=== PATIENT | female | born 1980 | race Caucasian/White ===

== ENCOUNTER 2016-12-20 10:14 | Emergency (ER) | payer SELFPAY ==
[~2016-12-20] VITALS: Ht 157.5 cm; Wt 61.2 kg
--- OUTSIDE RECORDS SUMMARY | 2016-12-20 10:20 | XMS REPORT ---
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 Name Role Phone LYUBOV DONOVAN CP Unavailable Allergies, Adverse Reactions, Alerts Substance Reaction Event Type Bactrim hives Drug Allergy Codeine hives and swelling of throat Drug Allergy Problems Problem Type Condition Code Onset Dates Condition Status Problem Diffuse cystic mastopathy of left breast N60.12 Active Assessment Family history of breast cancer Z80.3 Active Problem Diffuse cystic mastopathy of right breast N60.11 Active Assessment Fibrocystic breast changes, right N60.11 Active Assessment Breast pain, left N64.4 Active Assessment Fibrocystic breast changes, left N60.12 Active Medications Medication Code System Code Instructions Start Date End Date Status Dosage Cyclobenzaprine HCl [facility] [address]-73 10 MG Orally Three times a day 1 tablet Procedures Procedure Coding System Code Date Office Visit, Est Pt., Level 3 CPT-4 50060 Feb 15, 2016 Vital Signs Date/Time: Feb 15, 2016 Cardiac Monitoring Heart Rate 102 bpm Weight 137.5 lbs Height 63 in BMI 24.35 Index Blood Pressure Diastolic 68 mmHg Blood Pressure Systolic 102 mmHg Results No Known Results Summary Purpose eClinicalWorks Submission
[2016-12-20] MEDS ORDERED: DIAZEPAM (10:41)
[2016-12-20] MEDS ORDERED: CYCL10TA9 PO (10:42)
--- NOTE | 2016-12-20 10:55 | ED Abdominal Pain ---
General Chief Complaint: Abdominal/GI Problems Stated Complaint: ABD PAIN--5 DAYS Nursing Triage Note: ARRIVED VIA AMB WITH COMPLAINTS OF ABD PAIN X5 DAYS THOUGHT IT MIGHT BE INDEGESTION AND TOOK MEDS FOR THAT WHICH DID NOT HELP. STATES THAT IS STARTED ON THE LEFT AND NOW IS ALL OVER HER STOMACH. Sepsis Screen: No Definite Risk Source of Information: Patient Exam Limitations: No Limitations History of Present Illness Time Seen By Provider: 10:46 Initial Comments Patient presents to ER by private conveyance with chief complaint of 5 days left upper quadrant abdominal pain that radiates to the epigastric region. She is experiencing some nausea early on with some vomiting but not presently. She has had chills butobjective fever. She had diarrhea, loose stools. Last bowel movement was this morning. No blood in the stool or vomit. She's had no rash, headache, for contacts, foreign travel, camping, drinking from unsafe water sources. She states she's had 2 surgeries on her belly laparoscopic tubal and laparoscopic ovarian cyst removed although she does not remember which side. She has been taking Prilosec and Tums but this did not make any difference in her pain. Allergies and Home Medications Allergies Coded Allergies: codeine (Verified Allergy, Unknown, 12/20/16) sulfamethoxazole (Verified Allergy, Unknown, 12/20/16) trimethoprim (Verified Allergy, Unknown, 12/20/16) Home Medications Cyclobenzaprine HCl 10 Mg Tablet, 10 MG PO, (Reported) [Diazepam] , (Reported) Review of Systems Constitutional: chills, No diaphoresis, No fever, malaise EENTM: No Eye Pain, No Ear Pain Respiratory: Denies Cough, Denies Shortness of Air Cardiovascular: Denies Chest Pain, Denies Edema, Denies Lightheadedness, Denies Syncope Gastrointestinal: See HPI, Denies Abdomen Distended, Abdominal Pain (left upper quadrant), Denies Blood Streaked Stools, Denies Constipated, Diarrhea, Denies Difficulty Swallowing, Nausea, Vomiting Genitourinary: Burning, Denies Discharge Musculoskeletal: No back pain, No joint pain Skin: No pruritus, No rash Psychiatric/Neurological: Denies Headache, Denies Numbness, Denies Paresthesia Past Lremsuu-Aozinf-Qbzyzn Hx Patient Social History Alcohol Use: Denies Use Recreational Drug Use: No Smoking Status: Current Everyday Smoker Recent Foreign Travel: No Contact w/Someone Who Travel: No Recent Infectious Disease Expo: No Surgeries History of Surgeries: Yes (CYST, NECK) Surgeries: Tubal Ligation Cardiovascular History of Cardiac Disorders: No Neurological History of Neurological Disord: No Genitourinary History of Genitourinary Disor: No Gastrointestinal History of Gastrointestinal Di: No Musculoskeletal History of Musculoskeletal Dis: No Endocrine History of Endocrine Disorders: No HEENT History of HEENT Disorders: No Cancer History of Cancer: No Did You Recieve Any Treatments: No Psychosocial History of Psychiatric Problem: No Physical Exam Vital Signs VS - Last 72 Hours, by Label 12/20/16 10:32 Temp 97.1 Pulse 89 Resp 18 B/P (MAP) 109/68 Pulse Ox 98 Capillary Refill : Less Than 3 Seconds General Appearance: WD/WN, mild distress HEENT: PERRL/EOMI, pharynx normal Neck: non-tender, supple, normal inspection Respiratory: chest non-tender, lungs clear, normal breath sounds Cardiovascular: normal peripheral pulses, regular rate, rhythm, no edema Peripheral Pulses: 2+ Dorsalis Pedis (R), 2+ Left Dors-Pedis (L) Gastrointestinal: normal bowel sounds, no organomegaly, guarding (all 4 quadrants), No rebound, tenderness (epigastric, left upper quadrant) Extremities: non-tender, normal inspection, normal capillary refill Back: normal inspection, CVA tenderness (L) Neurologic/Psychiatric: alert, oriented x 3 Skin: normal color, warm/dry Progress/Results/Core Measures Results/Orders Lab Results Laboratory Tests Test 12/20/16 10:25 12/20/16 11:02 Range/Units Urine Color YELLOW Urine Clarity SLIGHTLY CLOUDY Urine pH 8 5-9 Urine Specific [place] 1.010 L 1.016-1.022 Urine Protein NEGATIVE NEGATIVE Urine Glucose (UA) NEGATIVE NEGATIVE Urine Ketones NEGATIVE NEGATIVE Urine Nitrite NEGATIVE NEGATIVE Urine Bilirubin NEGATIVE NEGATIVE Urine Urobilinogen NORMAL NORMAL MG/DL Urine Leukocyte Esterase NEGATIVE NEGATIVE Urine RBC (Auto) 1+ H NEGATIVE Urine RBC RARE /HPF Urine WBC RARE /HPF Urine Squamous Epithelial Cells 5-10 /HPF Urine Crystals PRESENT H /LPF Urine Amorphous Sediment MOD SAUL PHOSPHATE H /LPF Urine Bacteria NEGATIVE /HPF Urine Casts NONE /LPF Urine Mucus NEGATIVE /LPF Urine Culture Indicated NO White Blood Count 5.1 4.3-11.0 10^3/uL Red Blood Count 4.42 4.35-5.85 10^6/uL Hemoglobin 13.2 11.5-16.0 G/DL Hematocrit 39 35-52 % Mean Corpuscular Volume 89 80-99 FL Mean Corpuscular Hemoglobin 30 25-34 PG Mean Corpuscular Hemoglobin Concent 34 32-36 G/DL Red Cell Distribution Width 12.7 10.0-14.5 % Platelet Count 292 130-400 10^3/uL Mean Platelet Volume 10.2 7.4-10.4 FL Neutrophils (%) (Auto) 46 42-75 % Lymphocytes (%) (Auto) 44 12-44 % Monocytes (%) (Auto) 6 0-12 % Eosinophils (%) (Auto) 3 0-10 % Basophils (%) (Auto) 1 0-10 % Neutrophils # (Auto) 2.3 1.8-7.8 X 10^3 Lymphocytes # (Auto) 2.3 1.0-4.0 X 10^3 Monocytes # (Auto) 0.3 0.0-1.0 X 10^3 Eosinophils # (Auto) 0.2 0.0-0.3 10^3/uL Basophils # (Auto) 0.0 0.0-0.1 10^3/uL Sodium Level 139 135-145 MMOL/L Potassium Level 4.0 3.6-5.0 MMOL/L Chloride Level 108 H 98-107 MMOL/L Carbon Dioxide Level 25 21-32 MMOL/L Anion Gap 6 5-14 MMOL/L Blood Urea Nitrogen 8 7-18 MG/DL Creatinine 0.73 0.60-1.30 MG/DL Estimat Glomerular Filtration Rate > 60 BUN/Creatinine Ratio 11 Glucose Level 83 70-105 MG/DL Calcium Level 9.0 8.5-10.1 MG/DL Total Bilirubin 0.4 0.1-1.0 MG/DL Aspartate Amino Transf (AST/SGOT) 16 5-34 U/L Alanine Aminotransferase (ALT/SGPT) 12 0-55 U/L Alkaline Phosphatase 82 40-136 U/L Total Protein 6.8 6.4-8.2 GM/DL Albumin 3.9 3.2-4.5 GM/DL Lipase 7 L 8-78 U/L My Orders Orders - SHAYNA SAXENA Ct Abd/Pelvis Wo(Kidney Stone) (12/20/16 10:48) Cbc With Automated Diff (12/20/16 10:48) Comprehensive Metabolic Panel (12/20/16 10:48) Lipase (12/20/16 10:48) Ua Culture If Indicated (12/20/16 10:48) Vital Signs/I&O Vital Sign - Last 12Hours 12/20/16 10:32 Temp 97.1 Pulse 89 Resp 18 B/P (MAP) 109/68 Pulse Ox 98 Blood Pressure Mean: 82 Progress Note : Time: 10:54 Progress Note Left upper quadrant and epigastric pain with left CVA tenderness. Possibility of kidney stone however with her nausea vomiting and loose stools it is more likely that this could represent a viral gastroenteritis. She's had chills but certainly no fever on arrival. She has dysuria so we'll go ahead and do the kidney scan study as well as get a UA. Departure Impression Impression: Primary Impression: Abdominal pain Qualified Codes: R10.12 - Left upper quadrant pain Additional Impression: Gastroenteritis Disposition: 01 HOME, SELF-CARE Condition: Stable Departure-Patient Inst. Decision time for Depature: 12:16 Referrals: NO,LOCAL PHYSICIAN (PCP/Family) Primary Care Physician Patient Instructions: Viral Gastroenteritis Add. Discharge Instructions: Drink plenty of fluids. Use the nausea medicine every 6 hours under your tongue as needed to control your nausea, Zofran. If your symptoms persist for more than 7-10 days then you should follow up with her primary care physician and consider alternative diagnoses. If you're having loose stools for more than 48 hours it's reasonable to take Imodium 4 mg, 2 tablets and then every 4 hours after that if you're still having loose stools you should take one tablet. All discharge instructions reviewed with patient and/or family. Voiced understanding. Scripts Ondansetron (Ondansetron Odt) 4 Mg Tab.rapdis 4 MG PO Q6H Y for NAUSEA/VOMITING, #8 TAB 0 Refills Prov: SHAYNA SAXENA 12/20/16 Work/School Note: Work Release Form Date Seen in the Emergency Department: Dec 20, 2016 Return to Work: Dec 23, 2016 Restrictions: No Restrictions SHAYNA SAXENA Dec 20, 2016 10:55
[2016-12-20 11:02] LABS: BILIRUBIN,URINE NEGATIVE (NEGATIVE); KETONES,URINE NEGATIVE (NEGATIVE); LEUKOCYTE ESTERASE ,URINE NEGATIVE (NEGATIVE); NITRITE,URINE NEGATIVE (NEGATIVE); PH,URINE 8 (5-9); PROTEIN,URINE NEGATIVE (NEGATIVE); UROBILINOGEN,URINE NORMAL (NORMAL)
[2016-12-20 11:08] LABS: BASOPHILS % (AUTO) 1 % (0-10); EOSINOPHILS # (AUTO) 0.2 10^3/uL (0.0-0.3); EOSINOPHILS % (AUTO) 3 % (0-10); LYMPHOCYTES # (AUTO) 2.3 X 10^3 (1.0-4.0); LYMPHOCYTES % (AUTO) 44 % (12-44); MEAN CORPUSCULAR HEMOGLOBIN 30 PG (25-34); MEAN CORPUSCULAR HGB CONC 34 G/DL (32-36); MEAN CORPUSCULAR VOLUME 89 FL (80-99); MEAN PLATELET VOLUME 10.2 FL (7.4-10.4); MONOCYTES # (AUTO) 0.3 X 10^3 (0.0-1.0); MONOCYTES % (AUTO) 6 % (0-12); NEUTROPHILS # (AUTO) 2.3 X 10^3 (1.8-7.8); NEUTROPHILS % (AUTO) 46 % (42-75); PLATELET COUNT 292 10^3/uL (130-400); RED BLOOD COUNT 4.42 10^6/uL (4.35-5.85); RED CELL DISTRIBUTION WIDTH 12.7 % (10.0-14.5); WHITE BLOOD COUNT 5.1 10^3/uL (4.3-11.0)
[2016-12-20 11:13] LABS: WBC,URINE RARE /HPF
[2016-12-20 11:25] LABS: ALANINE AMINOTRANSFERASE 12 U/L (0-55); ALBUMIN 3.9 GM/DL (3.2-4.5); ANION GAP 6 MMOL/L (5-14); ASPARTATE AMINO TRANSFERASE 16 U/L (5-34); BILIRUBIN,TOTAL 0.4 MG/DL (0.1-1.0); BLOOD UREA NITROGEN 8 MG/DL (7-18); BUN/CREATININE RATIO 11; CARBON DIOXIDE 25 MMOL/L (21-32); CHLORIDE 108 MMOL/L (98-107); CREATININE SERUM 0.73 MG/DL (0.60-1.30); GFR ESTIMATED > 60; GLUCOSE 83 MG/DL (70-105); LIPASE 7 U/L (8-78); SODIUM 139 MMOL/L (135-145); TOTAL PROTEIN 6.8 GM/DL (6.4-8.2)
--- NOTE | 2016-12-20 11:54 | Diagnostic Imaging Report ---
PROCEDURE: CT urinary tract, rule out kidney stone. TECHNIQUE: Multiple contiguous axial images were obtained through the abdomen and pelvis without the use of intravenous contrast. INDICATION: Mid abdominal pain. Nausea. FINDINGS: The lung bases appear clear. The liver, the gallbladder, the spleen, the adrenal glands, the pancreas appear unremarkable. The kidneys demonstrate no hydronephrosis. No kidney stones. There is a 4 mm calcification in the right side of the pelvis appears to be a phlebolith with no definite ureteric or bladder stones seen. The appendix is normal in caliber with no evidence of appendicitis. There is no bowel obstruction. No significant free fluid or fluid collection in the abdomen or pelvis is seen. The uterus and adnexa appear grossly unremarkable. The osseous structures demonstrate mild left convexity curvature of the lumbar spine, probably positional. IMPRESSION: No urinary tract stone or hydronephrosis. Dictated by: Dictated on workstation # [id number]
[2016-12-20] MEDS ORDERED: ONDA4TAB11 PO (12:22)
[2016-12-20 12:35] VITALS: BP 113/64
== END 2016-12-20 12:35 | disposition home or self-care (01) ==
LOC: EDUNIT# 10:14 → ER 10:16
DX: K52.9 Noninfective gastroenteritis and colitis, unspecified (principal); F17.200 Nicotine dependence, unspecified, uncomplicated; Z98.51 Tubal ligation status; Z87.42 Personal history of other diseases of the female genital tract
CPT/HCPCS: 36415; 74176; 80053; 81000; 83690; 85025

== ENCOUNTER → 2017-06-22 | Outpatient (CLI) | payer BC ==
[~2017-06-22] MED LIST: CYCL10TA9 PO; DIAZEPAM; ONDA4TAB11 PO
[2017-06-22 08:43] LABS: BASOPHILS # (AUTO) 0.1 10^3/uL (0.0-0.1); BASOPHILS % (AUTO) 1 % (0-10); EOSINOPHILS # (AUTO) 0.1 10^3/uL (0.0-0.3); EOSINOPHILS % (AUTO) 2 % (0-10); HEMATOCRIT 39 % (35-52); HEMOGLOBIN 13.3 G/DL (11.5-16.0); LYMPHOCYTES # (AUTO) 1.8 X 10^3 (1.0-4.0); LYMPHOCYTES % (AUTO) 38 % (12-44); MEAN CORPUSCULAR HEMOGLOBIN 30 PG (25-34); MEAN CORPUSCULAR HGB CONC 34 G/DL (32-36); MEAN CORPUSCULAR VOLUME 89 FL (80-99); MONOCYTES # (AUTO) 0.3 X 10^3 (0.0-1.0); MONOCYTES % (AUTO) 6 % (0-12); NEUTROPHILS # (AUTO) 2.6 X 10^3 (1.8-7.8); NEUTROPHILS % (AUTO) 53 % (42-75); PLATELET COUNT 297 10^3/uL (130-400); RED CELL DISTRIBUTION WIDTH 12.8 % (10.0-14.5); WHITE BLOOD COUNT 4.8 10^3/uL (4.3-11.0)
[2017-06-22 09:09] LABS: ALANINE AMINOTRANSFERASE 18 U/L (0-55); ALBUMIN 4.1 GM/DL (3.2-4.5); ALKALINE PHOSPHATASE 77 U/L (40-136); BILIRUBIN,TOTAL 0.4 MG/DL (0.1-1.0); BUN/CREATININE RATIO 13; CALCIUM 8.6 MG/DL (8.5-10.1); CARBON DIOXIDE 25 MMOL/L (21-32); CHLORIDE 106 MMOL/L (98-107); CHOLESTEROL 191 MG/DL (< 200); CREATININE SERUM 0.79 MG/DL (0.60-1.30); GFR ESTIMATED > 60; GLUCOSE 90 MG/DL (70-105); HDL CHOLESTEROL 40 MG/DL (40-60); SODIUM 138 MMOL/L (135-145); TOTAL PROTEIN 6.2 GM/DL (6.4-8.2); TRIGLYCERIDES 55 MG/DL (<150); VLDL CHOLESTEROL 11 MG/DL (5-40)
== END ==
LOC: LAB 08:21
PROVIDERS: ATTEND Family Medicine
DX: Z00.00 Encounter for general adult medical examination without abnormal findings (principal); L98.8 Other specified disorders of the skin and subcutaneous tissue; Z72.0 Tobacco use
CPT/HCPCS: 36415; 80053; 80061; 84443; 85025

== ENCOUNTER → 2017-10-16 | Outpatient (CLI) | payer BC ==
--- NOTE | 2017-10-16 10:28 | Diagnostic Imaging Report ---
EXAMINATION: Thoracic spine at 0935 AM AP, lateral and swimmer's views were obtained. The AP view does show curvature of the lower thoracic spine, convex to the right. This finding is more pronounced than noted on the CT abdomen/pelvis exam of 12/20/2016 and consequently may in part be due to positioning. The vertebral body heights are within normal limits and the intervertebral disc spaces are well-maintained. There is no fracture or acute bony abnormality evident. There is no sign of a paraspinal mass. Incidental note is made of an interbody device at the C5-6 level. IMPRESSION: 1. There is no evidence for an acute bony abnormality. 2. If there is clinical concern regarding spinal stenosis or nerve root encroachment, then MRI would be recommended for additional study. Dictated by: Dictated on workstation # [id number]
--- NOTE | 2017-10-16 11:05 | Diagnostic Imaging Report ---
Lumbar spine at 932 hours. INDICATION: Back pain. AP, lateral and spot lateral views were obtained. FINDINGS: AP view does show curvature of the lumbar spine, convex to left. This finding was not present on the prior CT abdomen/pelvis exam of 12/20/2016 and consequently may well be due to positioning. The vertebral body heights are within normal limits and intervertebral spaces are well-maintained. There is no fracture or acute bony abnormality evident. There is no paraspinal mass visualized. The sacroiliac joints are symmetrical and within normal limits. IMPRESSION: 1. There is no evidence for an acute bony abnormality. 2. If there is clinical concern regarding spinal stenosis or nerve root encroachment, then MRI would be recommended for further study. Dictated by: Dictated on workstation # [id number]
== END ==
LOC: RAD 08:57
PROVIDERS: ATTEND Nurse Practitioner Family
DX: M54.5 Low back pain (principal); M54.6 Pain in thoracic spine
CPT/HCPCS: 72072; 72100

== ENCOUNTER → 2017-10-23 | Outpatient (CLI) | payer BC ==
--- NOTE | 2017-10-23 13:09 | Diagnostic Imaging Report ---
PROCEDURE: MRI lumbar spine. TECHNIQUE: Multiplanar, multisequence MRI of the lumbar spine was performed without contrast. INDICATION: Back pain, left leg pain, numbness and tingling to the level of the left foot, symptoms of two weeks' duration with no known discrete injury. FINDINGS: Lumbar body heights are maintained. Their alignment is anatomic. The marrow signal intensity is normal. The pedicles and pars are intact. There is only slight desiccation of the L5-S1 disc with minimal circumferential degenerative annular bulge. No focal herniation. The lumbar spinal canal, the neural foramina, and the lateral recesses are widely patent at each level. Conus appears normal. There is normal dispersal of the nerves of the cauda equina. No acute intrathecal or epidural abnormality. Partially visualized sacrum in the parasagittal sequences is normal. There is no paravertebral mass, hemorrhage, or fluid collection. IMPRESSION: Normal MRI lumbar spine aside from mild nonstenotic degenerative changes to the L5-S1 disc. Dictated by: Dictated on workstation # [id number]
--- NOTE | 2017-10-23 13:14 | Diagnostic Imaging Report ---
INDICATION: No known injury; however, back pain, left leg pain and numbness with tingling down to the level of the foot; symptoms 2 weeks in duration. FINDINGS: Corporate Strategy Analyst acquisitions show postsurgical changes to the C5-C6 cervical levels. The thoracic spinal cord has a normal volume and normal morphology and a normal signal intensity. CSF circumscribes the cord at each vertebral body and disc space level, and the spinal canal is widely patent throughout. There is a hemangioma as a benign finding in the T5 vertebral body. No acute or suspicious marrow signal abnormality. The thoracic discs are well hydrated and are nondisplaced, and the neural foramina bilaterally appear widely patent at all levels. There is no paravertebral mass, hemorrhage, or fluid collection revealed. IMPRESSION: T5 incidental vertebral body hemangioma. Well-hydrated nondisplaced thoracic discs. Normal cord. No canal or foraminal stenosis. No disc herniation. No acute bony abnormality. No ligamentous pathology. Normal alignment. Dictated by: Dictated on workstation # [id number]
== END ==
LOC: RAD 09:15
PROVIDERS: ATTEND Nurse Practitioner Family
DX: M47.817 Spondylosis without myelopathy or radiculopathy, lumbosacral region (principal)
CPT/HCPCS: 72146; 72148

== ENCOUNTER → 2019-05-30 | Outpatient (CLI) | payer BC ==
--- NOTE | 2019-05-30 09:44 | Diagnostic Imaging Report ---
Clinical indication: Patient with radiculopathy. Exam: MRI of the lumbar spine performed without IV contrast. Sagittal T2, sagittal T1, sagittal T2 fat sat and axial T2. Comparison: MRI of the lumbar spine without contrast dated 10/23/2017. Findings: Five lumbar type vertebra are identified. Lumbar spine has normal alignment with no fracture or dislocation. The lumbar vertebra have normal T1 and T2 signal. The visualized portions of the distal spinal cord, conus medullaris, and cauda equina have normal anatomic appearance. The conus medullaris tip is seen at the upper L1 vertebral body level. No paraspinal soft tissue abnormality is seen. There is no significant central spinal canal or neural foramen narrowing. There is no significant degenerative disease. The intervertebral disk spaces are well-preserved. Impression: Unremarkable MRI of the Lumbar spine. Dictated by: Dictated on workstation # [id number]
== END ==
LOC: RAD 07:35
PROVIDERS: ATTEND Orthopaedic Surgery
DX: M54.16 Radiculopathy, lumbar region (principal)
CPT/HCPCS: 72148

== ENCOUNTER 2019-06-24 14:31 | Emergency (ER) | payer BC ==
[~2019-06-24] VITALS: Ht 160 cm; Wt 63.5 kg
[2019-06-24 15:07] LABS: BILIRUBIN,URINE NEGATIVE (NEGATIVE); CLARITY,URINE CLEAR; COLOR,URINE YELLOW; GLUCOSE, URINE (UA) NEGATIVE (NEGATIVE); KETONES,URINE NEGATIVE (NEGATIVE); LEUKOCYTE ESTERASE ,URINE NEGATIVE (NEGATIVE); NITRITE,URINE NEGATIVE (NEGATIVE); PROTEIN,URINE NEGATIVE (NEGATIVE)
[2019-06-24] MEDS ORDERED: fentaNYL INJECTION 100 MCG/2 ML AMP IVP ONE (15:15)
[2019-06-24] MEDS ORDERED: ONDANSETRON 4 MG/2 ML (SDV) Z0FRAN IVP ONE (15:15)
[2019-06-24] MEDS ORDERED: PANTOPRAZOLE 40 MG (PROTONIX) VIAL IV ONE (15:15)
[2019-06-24 15:16] LABS: BACTERIA,URINE TRACE /HPF; RBC,URINE RARE /HPF
--- NOTE | 2019-06-24 15:19 | ED Abdominal Pain ---
General Chief Complaint: Abdominal/GI Problems Stated Complaint: ABD PAIN Nursing Triage Note: pt amb to triage with complaint of abd pain that started this am. states last time she had pain like this 10 yrs ago, was told she needed her gallbladder out, unable to have surgery due to finances. Sepsis Screen: No Definite Risk Source of Information: Patient Exam Limitations: No Limitations History of Present Illness Date Seen by Provider: Jun 24, 2019 Time Seen by Provider: 14:59 Initial Comments The patient presents to ER by private conveyance with chief complaint of since about 6 to 8:00 this morning she is experiencing some epigastric and right upper quadrant abdominal pain as severe, progressively worsening, sharp unrelenting. She ate biscuits and gravy at approximate 4:00 this morning. She's had nausea without vomiting since then. She had a bowel movement this morning which was normal, formed. She's had no fever or chills. No chest pain shortness of breath cough. She says 10 years ago she was told her gallbladder needed to come out but because she did not have insurance of the time she did not pursue it. She does not take any medications routinely but does follow with Dr. Montejo. She denies a history of acid reflux or indigestion. She did take some ibuprofen at 8:00 and again around 1:00 this morning. She says opiates pain medicines make her very nauseated and she does not tolerate them very well. Historically she's had her tubes tied and an ovarian cyst removed. Allergies and Home Medications Allergies Coded Allergies: codeine (Verified Allergy, Unknown, 12/20/16) sulfamethoxazole (Verified Allergy, Unknown, 12/20/16) trimethoprim (Verified Allergy, Unknown, 12/20/16) Home Medications Ondansetron 4 Mg Tab.rapdis, 4 MG PO Q6H PRN for NAUSEA/VOMITING Prescribed by: SHAYNA SAXENA on 12/20/16 1222 Patient Home Medication List Home Medication List Reviewed: Yes Review of Systems Review of Systems Constitutional: No chills, No fever EENTM: No Blurred Vision, No Double Vision Respiratory: Denies Cough, Denies Shortness of Air Cardiovascular: Denies Chest Pain, Denies Lightheadedness Gastrointestinal: See HPI, Abdominal Pain; Denies Constipated, Denies Diarrhea; Nausea, Poor Fluid Intake; Denies Vomiting Genitourinary: Denies Burning, Denies Discharge Musculoskeletal: No back pain, No joint pain All Other Systems Reviewed Negative Unless Noted: Yes Past Qyyxlkf-Wahbwn-Dimyej Hx Patient Social History Alcohol Use: Denies Use Recreational Drug Use: No Smoking Status: Current Everyday Smoker Recent Foreign Travel: No Contact w/Someone Who Travel: No Recent Infectious Disease Expo: No Immunizations Up To Date Tetanus Booster (TDap): Unknown PED Vaccines UTD: Yes Past Medical History Surgeries: Yes (CYST, NECK) Tubal Ligation Cardiac: No Neurological: No Genitourinary: No Gastrointestinal: No Musculoskeletal: No Endocrine: No HEENT: No Cancer: No Did You Recieve Any Treatments: No Psychosocial: No Physical Exam Vital Signs Vital Signs - First Documented 06/24/19 14:34 Temp 36.6 Pulse 80 Resp 20 B/P (MAP) 132/75 (94) Pulse Ox 100 O2 Delivery Room Air Capillary Refill : Less Than 3 Seconds Height/Weight/BMI Height: 5'2.00" Weight: 135lbs. oz. 61.604618as; 24.00 BMI Method:Stated General Appearance: WD/WN, mild distress HEENT: PERRL/EOMI, pharynx normal Neck: full range of motion, supple, normal inspection Respiratory: lungs clear, normal breath sounds, no respiratory distress, no accessory muscle use Cardiovascular: normal peripheral pulses, regular rate, rhythm Peripheral Pulses: 2+ Dorsalis Pedis (R), 2+ Left Dors-Pedis (L), 2+ Radial Pulses (R), 2+ Radial Pulses (L) Gastrointestinal: normal bowel sounds, soft, guarding (upper abdomen); No rebound; tenderness (epigastric and right upper quadrant with a softly positive Rosa sign), hepatomegaly (mild) Extremities: non-tender, normal inspection, no pedal edema Neurologic/Psychiatric: alert, normal mood/affect, oriented x 3 Skin: normal color, warm/dry Progress/Results/Core Measures Results/Orders Lab Results Laboratory Tests Test 06/24/19 15:00 06/24/19 15:32 Range/Units Urine Color YELLOW Urine Clarity CLEAR Urine pH 7.0 5-9 Urine Specific [place] 1.010 L 1.016-1.022 Urine Protein NEGATIVE NEGATIVE Urine Glucose (UA) NEGATIVE NEGATIVE Urine Ketones NEGATIVE NEGATIVE Urine Nitrite NEGATIVE NEGATIVE Urine Bilirubin NEGATIVE NEGATIVE Urine Urobilinogen 0.2 < = 1.0 MG/DL Urine Leukocyte Esterase NEGATIVE NEGATIVE Urine RBC (Auto) 2+ H NEGATIVE Urine RBC RARE /HPF Urine WBC NONE /HPF Urine Squamous Epithelial Cells 2-5 /HPF Urine Crystals NONE /LPF Urine Bacteria TRACE /HPF Urine Casts NONE /LPF Urine Mucus NEGATIVE /LPF Urine Culture Indicated NO Urine Opiates Screen NEGATIVE NEGATIVE Urine Oxycodone Screen NEGATIVE NEGATIVE Urine Methadone Screen NEGATIVE NEGATIVE Urine Propoxyphene Screen NEGATIVE NEGATIVE Urine Barbiturates Screen NEGATIVE NEGATIVE Ur Tricyclic Antidepressants Screen NEGATIVE NEGATIVE Urine Phencyclidine Screen NEGATIVE NEGATIVE Urine Amphetamines Screen NEGATIVE NEGATIVE Urine Methamphetamines Screen NEGATIVE NEGATIVE Urine Benzodiazepines Screen NEGATIVE NEGATIVE Urine Cocaine Screen NEGATIVE NEGATIVE Urine Cannabinoids Screen NEGATIVE NEGATIVE White Blood Count 6.5 4.3-11.0 10^3/uL Red Blood Count 4.47 4.35-5.85 10^6/uL Hemoglobin 13.4 11.5-16.0 G/DL Hematocrit 40 35-52 % Mean Corpuscular Volume 90 80-99 FL Mean Corpuscular Hemoglobin 30 25-34 PG Mean Corpuscular Hemoglobin Concent 33 32-36 G/DL Red Cell Distribution Width 13.5 10.0-14.5 % Platelet Count 353 130-400 10^3/uL Mean Platelet Volume 9.7 7.4-10.4 FL Neutrophils (%) (Auto) 42 42-75 % Lymphocytes (%) (Auto) 49 H 12-44 % Monocytes (%) (Auto) 6 0-12 % Eosinophils (%) (Auto) 3 0-10 % Basophils (%) (Auto) 1 0-10 % Neutrophils # (Auto) 2.7 1.8-7.8 X 10^3 Lymphocytes # (Auto) 3.2 1.0-4.0 X 10^3 Monocytes # (Auto) 0.4 0.0-1.0 X 10^3 Eosinophils # (Auto) 0.2 0.0-0.3 10^3/uL Basophils # (Auto) 0.1 0.0-0.1 10^3/uL Sodium Level 139 135-145 MMOL/L Potassium Level 3.5 L 3.6-5.0 MMOL/L Chloride Level 104 98-107 MMOL/L Carbon Dioxide Level 28 21-32 MMOL/L Anion Gap 7 5-14 MMOL/L Blood Urea Nitrogen 7 7-18 MG/DL Creatinine 0.80 0.60-1.30 MG/DL Estimat Glomerular Filtration Rate > 60 BUN/Creatinine Ratio 9 Glucose Level 80 70-105 MG/DL Calcium Level 9.1 8.5-10.1 MG/DL Corrected Calcium 8.7 8.5-10.1 MG/DL Total Bilirubin 0.2 0.1-1.0 MG/DL Aspartate Amino Transf (AST/SGOT) 20 5-34 U/L Alanine Aminotransferase (ALT/SGPT) 12 0-55 U/L Alkaline Phosphatase 68 40-136 U/L C-Reactive Protein High Sensitivity 0.06 0.00-0.50 MG/DL Total Protein 7.1 6.4-8.2 GM/DL Albumin 4.5 3.2-4.5 GM/DL Lipase 13 8-78 U/L My Orders Orders - SHAYNA SAXENA Ua Culture If Indicated (06/24/19 14:40) Ondansetron Injection (Zofran Injectio (06/24/19 15:15) Fentanyl Injection (Sublimaze Injection (06/24/19 15:15) Pantoprazole Injection (Protonix Injecti (06/24/19 15:15) Ed Iv/Invasive Line Start (06/24/19 15:10) Cbc With Automated Diff (06/24/19 15:10) Comprehensive Metabolic Panel (06/24/19 15:10) Hs C Reactive Protein (06/24/19 15:10) Lipase (06/24/19 15:10) Drug Screen Stat (Urine) (06/24/19 15:10) Us Gallbladder 35119 (06/24/19 15:10) Lidocaine 2% Viscous 15 Ml (Xylocaine Vi (06/24/19 16:30) Famotidine Tablet (Pepcid Tablet) (06/24/19 16:29) Antacid Suspension (Mylanta Suspension (06/24/19 16:30) Medications Given in ED Current Medications Medications Dose Ordered Sig/Lucinda Route Start Time Stop Time Status Last Admin Dose Admin Al Hydrox/Mg Hydrox/Simethicone 30 ml ONCE ONCE PO 06/24/19 16:30 06/24/19 16:31 DC 06/24/19 16:34 30 ML Fentanyl Citrate 25 mcg ONCE ONCE IVP 06/24/19 15:15 06/24/19 15:16 DC 06/24/19 15:23 25 MCG Lidocaine HCl 15 ml ONCE ONCE PO 06/24/19 16:30 06/24/19 16:31 DC 06/24/19 16:34 15 ML Ondansetron HCl 4 mg ONCE ONCE IVP 06/24/19 15:15 06/24/19 15:16 DC 06/24/19 15:23 4 MG Pantoprazole 40 mg ONCE ONCE IV 06/24/19 15:15 06/24/19 15:16 DC 06/24/19 15:23 40 MG Vital Signs/I&O 06/24/19 14:34 Temp 36.6 Pulse 80 Resp 20 B/P (MAP) 132/75 (94) Pulse Ox 100 O2 Delivery Room Air Blood Pressure Mean: 94 Progress Progress Note #1: Time: 15:18 Progress Note Since the patient has recently had ibuprofen milligrams we will give her some fentanyl. She remarks that she is very sensitive to pain meds so we'll give her 25 g of fentanyl to start. For Zofran for her nausea. Her vital signs are aseptic. Her abdominal exam points this towards right upper quadrant. Her history says that her gallbladder problem in the past. She endorses eating Biscuits and gravy before her pain started. Gallbladder, biliary tract, pancreatitis, PUD, etc.? Plan to get a ultrasound of her right upper quadrant abdomen. Pantoprazole. Progress Note #2: Time: 16:27 Progress Note Patient remembers she did eat a Zinger approximately 2 hours prior to arrival. Gallbladder was contracted on the ultrasound. Labs are unremarkable. Patient's pain was controlled with the fentanyl however she says it has worn off and her pain is back. We are going to give her a GI cocktail. Progress Note #3: Time: 16:56 Progress Note The patient actually had significant improvement of her pain at the GI cocktail. She still having a little bit of pain. Suspect she has gastritis possible ulcer. Plan to put her on Carafate, omeprazole and have her follow-up with Dr. Bryant for potential endoscopy versus gallbladder workup outpatient. Patient's in agreement with this plan. We'll send her home some Zofran and hydrocodone for back up. We have given her return precautions to the ER. Diagnostic Imaging Diagonstic Imaging: Ultrasound Plain Films/CT/US/NM/MRI: abdomen (gallbladder) Comments [facility] [place], [place] NAME: CRISTINE TREJO [facility] REC#: [id number] PT STATUS: REG ER : 1980 PHYSICIAN: SHAYNA SAXENA MD ADMIT DATE: 06/24/19/ER Draft Date of Exam:06/24/19 US GALLBLADDER [id number] PROCEDURE: US Gallbladder. TECHNIQUE: Multiple real-time grayscale images were obtained over the right upper quadrant in various projections. INDICATION: Abdominal pain. FINDINGS: Liver is normal in size at 17.1 cm. No discrete liver mass is detected. The gallbladder appears to be contracted. No stones are seen. There is no sludge. No biliary ductal dilatation is identified. Visualized pancreas is unremarkable. IVC is patent. Portal vein is patent and shows normal direction of flow. The aorta was not evaluated. Right kidney is without calculi or hydronephrosis. There is no ascites. IMPRESSION: Contracted gallbladder. No definite cholelithiasis or sludge is detected. Dictated on workstation # [id number] Dict: 06/24/19 1612 Trans: 06/24/19 1616 [id number] Interpreted by: KANU YOUSSEF MD Electronically signed by: Reviewed: Reviewed by Me Departure Impression Primary Impression: Gastritis Qualified Codes: K29.00 - Acute gastritis without bleeding Disposition: HOME, SELF-CARE Condition: Stable Departure-Patient Inst. Decision time for Depature: 16:57 Referrals: ALEX MONTEJO MD (PCP/Family) Primary Care Physician Patient Instructions: Gastritis (DC) Add. Discharge Instructions: Start taking omeprazole 20 mg twice a day for the next 30 days. Start taking the Carafate half an hour before meals 3 times a day and then at bedtime for a total of 4 times a day. Do this for 2 weeks. Ondansetron one tablet under the tongue every 6 hours as needed for nausea or vomiting. Tums, Rolaids, Maalox, Mylanta etc. as necessary for stomach pain. Tylenol 650 mg every 8 hours as needed for pain. Hydrocodone one half to one tablet every 6 hours as needed for breakthrough pain. Plan to call Dr. Bryant, general surgery and request follow-up appointment for outpatient management of your potential gastritis. If you experience fever above 100.3F or intractable pain despite these medications then please return to the nearest ER promptly. All discharge instructions reviewed with patient and/or family. Voiced understanding. Scripts Omeprazole (Omeprazole) 20 Mg Capsule. 20 MG PO BID for 30 Days, #60 CAP 0 Refills Prov: SHAYNA SAXENA 06/24/19 Sucralfate (Carafate) 1 Gm Tablet 1 GM PO QIDACHS for 14 Days, #56 TAB 0 Refills Prov: SHAYNA SAXENA 06/24/19 Hydrocodone/Acetaminophen (Hydrocodone/Acetaminophen 5 MG/325 MG TAB) 1 Each Tablet 0.5-1 TAB PO Q6H for Pain MDD 10 TABS, #10 TAB 0 Refills Prov: SHAYNA SAXENA 06/24/19 Ondansetron (Ondansetron Odt) 4 Mg Tab.rapdis 4 MG PO Q6H PRN for NAUSEA/VOMITING, #8 TAB 0 Refills Prov: SHAYNA SAXENA 06/24/19 SHAYNA SAXENA Jun 24, 2019 15:19
[2019-06-24 15:27] LABS: AMPHETAMINE SCREEN, URINE NEGATIVE (NEGATIVE); BARBITURATE SCREEN URINE NEGATIVE (NEGATIVE); BENZODIAZEPINES SCREEN URINE NEGATIVE (NEGATIVE); CANNABINOID SCREEN, URINE NEGATIVE (NEGATIVE); COCAINE SCREEN URINE NEGATIVE (NEGATIVE); METHADONE STAT NEGATIVE (NEGATIVE); METHAMPHETAMINE SCREEN URINE S NEGATIVE (NEGATIVE); OPIATE SCREEN URINE NEGATIVE (NEGATIVE); OXYCODONE STAT NEGATIVE (NEGATIVE); PROPOXYPHENE STAT NEGATIVE (NEGATIVE); TRICYCLIC ANTIDEPRESSANTS SCRE NEGATIVE (NEGATIVE)
[2019-06-24 15:40] LABS: BASOPHILS # (AUTO) 0.1 10^3/uL (0.0-0.1); BASOPHILS % (AUTO) 1 % (0-10); EOSINOPHILS # (AUTO) 0.2 10^3/uL (0.0-0.3); EOSINOPHILS % (AUTO) 3 % (0-10); HEMATOCRIT 40 % (35-52); HEMOGLOBIN 13.4 G/DL (11.5-16.0); LYMPHOCYTES # (AUTO) 3.2 X 10^3 (1.0-4.0); LYMPHOCYTES % (AUTO) 49 % (12-44); MEAN CORPUSCULAR HEMOGLOBIN 30 PG (25-34); MEAN CORPUSCULAR HGB CONC 33 G/DL (32-36); MEAN CORPUSCULAR VOLUME 90 FL (80-99); MEAN PLATELET VOLUME 9.7 FL (7.4-10.4); MONOCYTES # (AUTO) 0.4 X 10^3 (0.0-1.0); MONOCYTES % (AUTO) 6 % (0-12); NEUTROPHILS # (AUTO) 2.7 X 10^3 (1.8-7.8); NEUTROPHILS % (AUTO) 42 % (42-75); PLATELET COUNT 353 10^3/uL (130-400); RED CELL DISTRIBUTION WIDTH 13.5 % (10.0-14.5); WHITE BLOOD COUNT 6.5 10^3/uL (4.3-11.0)
[2019-06-24 15:57] LABS: ALANINE AMINOTRANSFERASE 12 U/L (0-55); ALBUMIN 4.5 GM/DL (3.2-4.5); ALKALINE PHOSPHATASE 68 U/L (40-136); BILIRUBIN,TOTAL 0.2 MG/DL (0.1-1.0); BUN/CREATININE RATIO 9; CALCIUM 9.1 MG/DL (8.5-10.1); CARBON DIOXIDE 28 MMOL/L (21-32); CHLORIDE 104 MMOL/L (98-107); GFR ESTIMATED > 60; GLUCOSE 80 MG/DL (70-105); LIPASE 13 U/L (8-78); POTASSIUM 3.5 MMOL/L (3.6-5.0); SODIUM 139 MMOL/L (135-145); TOTAL PROTEIN 7.1 GM/DL (6.4-8.2)
--- NOTE | 2019-06-24 16:16 | Diagnostic Imaging Report ---
PROCEDURE: US Gallbladder. TECHNIQUE: Multiple real-time grayscale images were obtained over the right upper quadrant in various projections. INDICATION: Abdominal pain. FINDINGS: Liver is normal in size at 17.1 cm. No discrete liver mass is detected. The gallbladder appears to be contracted. No stones are seen. There is no sludge. No biliary ductal dilatation is identified. Visualized pancreas is unremarkable. IVC is patent. Portal vein is patent and shows normal direction of flow. The aorta was not evaluated. Right kidney is without calculi or hydronephrosis. There is no ascites. IMPRESSION: Contracted gallbladder. No definite cholelithiasis or sludge is detected. Dictated by: Dictated on workstation # [id number]
[2019-06-24] MEDS ORDERED: FAMOTIDINE 20 MG (PEPCID) TABLET PO STA (16:29)
[2019-06-24] MEDS ORDERED: LIDOCAINE 2% VISCOUS 15 ML UDC PO ONE (16:30)
[2019-06-24] MEDS ORDERED: ANTACID SUSP 30 ML UDC (MYLANTA) PO ONE (16:30)
[2019-06-24] MEDS ORDERED: SUCR1TAB36 PO (17:01)
[2019-06-24] MEDS ORDERED: HYDR-4226 PO (17:01)
[2019-06-24] MEDS ORDERED: ONDA4TAB11 PO (17:01)
[2019-06-24] MEDS ORDERED: OMEP20CA18 PO (17:01)
[2019-06-24 17:24] VITALS: BP 122/79
== END 2019-06-24 17:27 | disposition home or self-care (01) ==
LOC: EDUNIT# 14:31 → ER 14:32
DX: K29.70 Gastritis, unspecified, without bleeding (principal); F17.200 Nicotine dependence, unspecified, uncomplicated; Z88.5 Allergy status to narcotic agent; Z88.2 Allergy status to sulfonamides; Z88.1 Allergy status to other antibiotic agents
CPT/HCPCS: 36415; 76705; 80053; 80306; 81000; 83690; 84703; 85025; 86141

== ENCOUNTER → 2019-06-30 | Emergency (ER) | payer BC ==
[~2019-06-30] VITALS: Ht 160 cm; Wt 63.5 kg
[~2019-06-30] MED LIST changes: +AZIT250T12 PO; +D-ME118S33 PO; +HYDR-4226 PO; +OMEP20CA18 PO; +SUCR1TAB36 PO
[2019-06-30 11:00] VITALS: BP 123/78
--- NOTE | 2019-06-30 11:04 | ED Cough/URI ---
General Stated Complaint: COUGH Source: patient Exam Limitations: no limitations History of Present Illness Date Seen by Provider: Jun 30, 2019 Time Seen by Provider: 11:00 Initial Comments To ER with 4 day history of productive cough, fever to a maximum of 100 yesterday, no fever today, last dose of antipyretic was Midol at 5 AM this morning, 6 hours ago. She is afebrile here currently. No travel outside the area. She is a smoker. Timing/Duration: constant Severity/Quality: productive cough Modifying Factors: Improves With Activity Associated Symptoms: cough Allergies and Home Medications Allergies Coded Allergies: codeine (Verified Allergy, Unknown, 12/20/16) sulfamethoxazole (Verified Allergy, Unknown, 12/20/16) trimethoprim (Verified Allergy, Unknown, 12/20/16) Home Medications Azithromycin 250 Mg Tablet, 250 MG PO UD TAKE 2 TABLETS ON DAY ONE THEN TAKE 1 TABLET DAILY FOR FOUR MORE DAYS Prescribed by: MARIELY REGAN on 06/30/19 1103 D-Methorphan Hb/P-Epd HCl/Bpm 118 Ml Syrup, 5 ML PO Q4H PRN for COUGH Prescribed by: MARIELY REGAN on 06/30/19 1104 Hydrocodone/Acetaminophen 1 Each Tablet, 0.5-1 TAB PO Q6H Prescribed by: SHAYNA SAXENA on 06/24/19 170 Omeprazole 20 Mg Capsule.dr, 20 MG PO BID Prescribed by: SHAYNA SAXENA on 06/24/191700 Ondansetron 4 Mg Tab.rapdis, 4 MG PO Q6H PRN for NAUSEA/VOMITING Prescribed by: SHAYNA SAXENA on 12/20/16 1222 Ondansetron 4 Mg Tab.rapdis, 4 MG PO Q6H PRN for NAUSEA/VOMITING Prescribed by: SHAYNA SAXENA on 06/24/191700 Sucralfate 1 Gm Tablet, 1 GM PO QIDACHS Prescribed by: SHAYNA SAXENA on 06/24/191700 Patient Home Medication List Home Medication List Reviewed: Yes Review of Systems Review of Systems Constitutional: see HPI, fever EENTM: see HPI Respiratory: see HPI, cough Cardiovascular: no symptoms reported Genitourinary: no symptoms reported Musculoskeletal: no symptoms reported Skin: no symptoms reported Psychiatric/Neurological: No Symptoms Reported Hematologic/Lymphatic: No Symptoms Reported Past Rmutydb-Znxkpr-Zfjkqn Hx Immunizations Up To Date Tetanus Booster (TDap): Unknown PED Vaccines UTD: Yes Past Medical History Surgeries: Yes (CYST, NECK) Tubal Ligation Cardiac: No Neurological: No Genitourinary: No Gastrointestinal: No Musculoskeletal: No Endocrine: No HEENT: No Cancer: No Did You Recieve Any Treatments: No Psychosocial: No Physical Exam Vital Signs - First Documented 06/30/19 06/30/19 11:00 11:05 Temp 36.6 Pulse 93 Resp 20 B/P (MAP) 123/78 (93) Pulse Ox 99 O2 Delivery Room Air Capillary Refill : Height: 5'2.00" Weight: 135lbs. oz. 61.182832ss; 24.00 BMI Method:Stated General Appearance: WD/WN, no apparent distress, other (no distress, no accessory muscle use, no hypoxia.) Eyes: Bilateral Eye Normal Inspection, Bilateral Eye PERRL, Bilateral Eye EOMI HEENT: PERRL/EOMI, normal ENT inspection, TMs normal Neck: non-tender, full range of motion Respiratory: no respiratory distress, no accessory muscle use Gastrointestinal: normal bowel sounds, soft Extremities: normal range of motion, non-tender Neurologic/Psychiatric: alert, normal mood/affect, oriented x 3 Skin: normal color, warm/dry Progress/Results/Core Measures Suspected Sepsis SIRS Temperature: Pulse: Respiratory Rate: Blood Pressure / Mean: Results/Orders Lab Results Laboratory Tests Test 06/30/19 10:52 Range/Units Group A Streptococcus Screen NEGATIVE NEGATIVE My Orders Orders - MARIELY REGAN APRN Rapid Strep A Screen (06/30/19 10:50) Influenza A And B Antigens (06/30/19 10:50) Vital Signs/I&O 06/30/19 06/30/19 11:00 11:05 Temp 36.6 Pulse 93 Resp 20 B/P (MAP) 123/78 (93) Pulse Ox 99 O2 Delivery Room Air Capillary Refill : Departure Impression Primary Impression: Bronchitis Disposition: 01 HOME, SELF-CARE Condition: Stable Departure-Patient Inst. Decision time for Depature: 11:01 Referrals: ALEX MONTERROSO MD (PCP/Family) Primary Care Physician Patient Instructions: Acute Bronchitis, Adult (DC) Add. Discharge Instructions: 1. Tylenol for fever control 2. Medication as directed. Follow-up with your doctor next week for follow-up. Quarantine at home until he is symptom-free and fever free for 72 hours with no use of Tylenol and Motrin. Scripts D-Methorphan Hb/P-Epd HCl/Bpm (Bromfed Dm Cough Syrup) 118 Ml Syrup 5 ML PO Q4H PRN for COUGH for 7 Days, #120 ML Prov: MARIELY REGAN APRN 06/30/19 Azithromycin (Azithromycin) 250 Mg Tablet 250 MG PO UD, #6 TAB TAKE 2 TABLETS ON DAY ONE THEN TAKE 1 TABLET DAILY FOR FOUR MORE DAYS Prov: MARIELY REGAN APRN 06/30/19 Work/School Note: Work Release Form Date Seen in the Emergency Department: Jun 30, 2019 Return to Work: Jul 08, 2019 MARIELY REGAN APRN Jun 30, 2019 11:04
== END ==
LOC: EDUNIT# 10:48 → ER 10:49
DX: J40 Bronchitis, not specified as acute or chronic (principal); Z88.2 Allergy status to sulfonamides; Z88.5 Allergy status to narcotic agent
CPT/HCPCS: 87430; 87804

== ENCOUNTER 2019-09-02 11:37 | Emergency (ER) | payer BC ==
[~2019-09-02] VITALS: Ht 160 cm; Wt 61.6 kg
[2019-09-02] MEDS ORDERED: KETOROLAC 30 MG/ML VIAL IVP ONE (13:00)
[2019-09-02] MEDS ORDERED: ORPHENADRINE 60 MG/2 ML (NORFLEX) AMP IV ONE (13:00)
[2019-09-02 13:43] VITALS: BP 116/61
[2019-09-02] MEDS ORDERED: methylPREDNISolone 125 MG (Solu-MEDROL) VIAL IVP ONE (14:00)
[2019-09-02] MEDS ORDERED: fentaNYL INJECTION 100 MCG/2 ML AMP IVP ONE (14:00)
--- NOTE | 2019-09-02 14:24 | NUR ---
Pt tearful, MD ordered additional pain medicine as the 1st dose did not help much. Pt refuses at this time stating "I dont wanna just cover up the pain. I want to know whats wrong." MD now at the bedside discussing pt concerns and MD to consult pt's pain managment doctor. 1427: Pt now agreeable to additional interventions and medication; aware of plan of care at this time.
--- NOTE | 2019-09-02 14:31 | ED Back Pain ---
General Chief Complaint: Back Problems Stated Complaint: BACK PAIN Nursing Triage Note: Pt reports having an epidural injection at pain clinic x2 weeks ago in the T8 region. Now reports back pain/pressure in between the shoulder blades without any radiation or contributing sx. Seen in and sent here for further eval. Nursing Sepsis Screen: No Definite Risk Source of Information: Patient Exam Limitations: No Limitations History of Present Illness Date Seen by Provider: September 02, 2019 Time Seen by Provider: 12:33 Initial Comments This 38-year-old woman presents to the emergency room with upper back pain between the shoulder blades that has been intensifying over the past 4 days. She had an epidural injection a couple of weeks ago by Dr. Scruggs in [place]. Symptoms did not improve after that and have gradually worsened. She has been taking ibuprofen and Midol without any improvement. Last night she took a leftover hydrocodone which had minimal effect. She last took Midol 3 about 08:00. She reports a history of degenerative disc disease and herniated disc in the cervical spine for which she has had a disc replacement. MRIs performed in the last couple of years on the thoracic spine and lumbar spine have not shown significant disease. There was an incidental hemangioma in the thoracic spine without complication. She reports chronic left-sided radicular symptoms from her neck pathology and now she is experiencing them on the right as well. She is tearful and feels distressed. Allergies and Home Medications Allergies Coded Allergies: codeine (Verified Allergy, Unknown, 12/20/16) sulfamethoxazole (Verified Allergy, Unknown, 12/20/16) trimethoprim (Verified Allergy, Unknown, 12/20/16) Home Medications Azithromycin 250 Mg Tablet, 250 MG PO UD TAKE 2 TABLETS ON DAY ONE THEN TAKE 1 TABLET DAILY FOR FOUR MORE DAYS Prescribed by: MARIELY REGAN on 06/30/19 1103 Cyclobenzaprine HCl 10 Mg Tablet, 10 MG PO TID PRN for SPASMS Prescribed by: MARILOU ROSSI on 09/02/19 1513 D-Methorphan Hb/P-Epd HCl/Bpm 118 Ml Syrup, 5 ML PO Q4H PRN for COUGH Prescribed by: MARIELY REGAN on 06/30/19 1104 Hydrocodone/Acetaminophen 1 Each Tablet, 0.5-1 TAB PO Q6H Prescribed by: SHAYNA SAXENA on 06/24/19 1701 Omeprazole 20 Mg Capsule.dr, 20 MG PO BID Prescribed by: SHAYNA SAXENA on 06/24/19 170 Ondansetron 4 Mg Tab.rapdis, 4 MG PO Q6H PRN for NAUSEA/VOMITING Prescribed by: SHAYNA SAXENA on 12/20/16 1222 Ondansetron 4 Mg Tab.rapdis, 4 MG PO Q6H PRN for NAUSEA/VOMITING Prescribed by: SHAYNA SAXENA on 06/24/19 170 Oxycodone HCl/Acetaminophen 1 Each Tablet, 1 TAB PO Q4H PRN for PAIN- BREAKTHROUGH Prescribed by: MARILOU ROSSI on 09/02/19 151 Prednisone 20 Mg Tab, 40 MG PO DAILY Prescribed by: MARILOU ROSSI on 09/02/19 151 Sucralfate 1 Gm Tablet, 1 GM PO QIDACHS Prescribed by: SHAYNA SAXENA on 06/24/191700 Patient Home Medication List Home Medication List Reviewed: Yes Review of Systems Constitutional: no symptoms reported EENTM: no symptoms reported Respiratory: no symptoms reported Cardiovascular: no symptoms reported Gastrointestinal: no symptoms reported Genitourinary: no symptoms reported : No Musculoskeletal: see HPI Skin: no symptoms reported Psychiatric/Neurological: See HPI Past Hvsgozl-Emmiia-Hznhnl Hx Past Med/Social Hx: Reviewed Nursing Past Med/Soc Hx Patient Social History Alcohol Use: Denies Use Recreational Drug Use: No Smoking Status: Current Everyday Smoker Type Used: Cigarettes 2nd Hand Smoke Exposure: Yes Recent Foreign Travel: No Contact w/Someone Who Travel: No Recent Infectious Disease Expo: No Recent Hopitalizations: No Physical Abuse: No Sexual Abuse: No Mistreated: No Fear: No Immunizations Up To Date Tetanus Booster (TDap): Unknown PED Vaccines UTD: Yes Seasonal Allergies Seasonal Allergies: No Past Medical History Surgeries: Yes (multiple back sx with hardware placement in cervical spine) Cystectomy (ovarian), Orthopedic, Tonsillectomy, Tubal Ligation Respiratory: No Cardiac: No Neurological: No Genitourinary: No Gastrointestinal: No Musculoskeletal: Yes Back Injury, Chronic Back Pain Endocrine: No HEENT: No Cancer: No Did You Recieve Any Treatments: No Psychosocial: No Integumentary: No Blood Disorders: No Physical Exam Vital Signs Vital Signs - First Documented 09/02/19 11:47 Temp 36.7 Pulse 71 Resp 18 B/P (MAP) 123/77 (92) Pulse Ox 99 O2 Delivery Room Air Capillary Refill : Less Than 3 Seconds Height, Weight, BMI Height: 5'2.00" Weight: 135lbs. oz. 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 Skin: Normal Color, Warm/Dry Progress/Results/Core Measures Results/Orders My Orders Orders - MARILOU RUSSELL MD Ed Iv/Invasive Line Start (09/02/19 12:59) Ketorolac Injection (Toradol Injection) (09/02/19 13:00) Orphenadrine Injection (Norflex Injectio (09/02/19 13:00) Methylprednisolone Sod Succ (Solu-Medrol (09/02/19 14:00) Fentanyl Injection (Sublimaze Injection (09/02/19 14:00) Oxycodone/Apap 5/325mg Tablet (Percocet (09/02/19 15:00) Medications Given in ED Vital Signs/I&O 09/02/19 09/02/19 09/02/19 09/02/19 11:47 13:43 14:25 15:31 Temp 36.7 36.7 Pulse 71 61 68 Resp 18 16 16 B/P (MAP) 123/77 (92) 116/61 (79) 110/87 Pulse Ox 99 100 97 O2 Delivery Room Air Room Air Room Air Blood Pressure Mean: 79 Progress Progress Note : Progress Note Patient was given Toradol and Norflex with minimal improvement. This was followed by Solu-Medrol, fentanyl, and a Percocet pill. I discussed the case with Dr. Scruggs. He reports the epidural was given based on symptomatology rather than MRI findings. He doubts the increase in pain is related to complication from the injections since the exacerbation happens so long after the initial injection. I discussed the case with Dr. Lynn as well. From a radiologist perspective he does not believe the hemangioma should be causing her symptoms. I advised the patient to follow-up with her primary care provider and Dr. Esquivel (her spine surgeon) for further evaluation. In the meantime we will treat with a short course of steroids. See discharge instructions. She may need reassessment of her cervical spine as well. This pathology was due to a workplace injury. 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 Departure Impression Primary Impression: Thoracic back pain Qualified Codes: M54.6 - Pain in thoracic spine Disposition: HOME, SELF-CARE Condition: Improved Departure-Patient Inst. Referrals: ALEX MONTERROSO MD (PCP/Family) Primary Care Physician Patient Instructions: Radiculopathy (DC) Add. Discharge Instructions: The exact cause of your back pain is uncertain at this time. You may use ibuprofen up to 600 mg every 6 hours as needed for primary pain control. Add Percocet as prescribed for pain not controlled by ibuprofen. You may also use cyclobenzaprine for muscle tension or spasms. Complete the prednisone as prescribed to help reduce inflammation. Take early in the day with food or milk to avoid stomach upset or sleep disturbance. Follow-up with your primary care provider and your workmen's comp. provider as soon as possible. You may need additional imaging of your thoracic spine to make an accurate diagnosis. You may also additionally need imaging of the cervical spine (neck) because of the symptoms and your upper extremities. Return to the emergency room if you have worsening symptoms, especially if you develop true weakness in your extremities or bowel or bladder control problems. All discharge instructions reviewed with patient and/or family. Voiced understanding. Scripts Prednisone (Prednisone) 20 Mg Tab 40 MG PO DAILY, #8 TAB 0 Refills Prov: MARILOU RUSSELL MD 09/02/19 Cyclobenzaprine HCl (Cyclobenzaprine HCl) 10 Mg Tablet 10 MG PO TID PRN for SPASMS, #10 TAB Prov: MARILOU RUSSELL MD 09/02/19 Oxycodone HCl/Acetaminophen (Percocet 5-325 mg Tablet) 1 Each Tablet 1 TAB PO Q4H PRN for PAIN-BREAKTHROUGH MDD 6 TABS, #10 TAB Prov: MARILOU RUSSELL MD 09/02/19 Copy Copies To 1: ALEX MONTERROSO MD Copies To 2: LILIA ESQUIVEL JOSHUA T MD September 02, 2019 14:31
--- OUTSIDE RECORDS SUMMARY | 2019-09-02 14:38 | XMS REPORT ---
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 [employer] [facility] [employer] [facility] [place] [employer] Address [address] [place] [id number] Care Team Providers Care Fiscal Services Director Name Role Phone LYUBOV DONOVAN Unavailable Unavailable NO, LOCAL PHYSICIAN Unavailable Unavailable RENZO TONY Unavailable TOMASA SELF Unavailable Unavailable RUBIN PETERSON Unavailable RUBIN Christopher Unavailable Migration, Doctor Unavailable Unavailable Migration, Doctor Unavailable Unavailable BIRDIE MIRANDA Unavailable MARY BRIDGES Unavailable Unavailable PCP, OUTSIDE Unavailable Unavailable LILIA CHOI DO Unavailable Unavailable HEMANTH MOY, SHAYNA Cornejo Unavailable Unavailable LOC MOY, ALEX Epperson Unavailable Unavailable LYUBOV DONOVAN APRN Unavailable Unavailable JT MOY, DILLON Valdovinos Unavailable Unavailable MARIELY REGAN APRN Unavailable Unavailable LYUBOV DONOVAN Unavailable BIRDIE MIRANDA Unavailable FLIP OLIVO Unavailable DREW MOY, MARILOU Houser Unavailable Unavailable Unavailable Unavailable Unavailable Unavailable Allergies Normalized Allergy Reported Date of Reaction(s) Care Provider Facility Allergy Type classification allergen Allergy Onset Drug Allergy Sulfonamides Sulfamethoxazo 12-20-2016 - no kristopher MCARTHUR [facility] Via (20 sources.) (antibiotic) kristopher DONOVAN APRN [facility] ([id number]) Medications Medication Ingredient Drug Dose Dates Status Sig Sig Care Class(es) (Normalized) (Original) Provid er acetaminoph acetaminoph Opioid 10-16-19 Active no Hydrocodon e- no en 325 mg / en / Agonist 18 - information Acetaminophe name HYDROcodone HYDROcodone 10-21-19 n 5-325 MG bitartrate Translation 18 Orally every 5 mg oral s: [ 6 hrs 1 tablet (1 Hydrocodone tablet as source.) -Acetaminop needed 6h 09 hen 5-325 Oct, 2017 14 MG] Oct, 2017 5 days Active clindamycin clindamycin Lincosamide 300 mg 10-23-19 Active no Clindamycin no 300 mg oral Translation Antibacteri 18 - information HCl 30 0 MG name capsule (1 s: [ al 11-02-19 Orally every source.) Clindamycin 18 8 hrs 1 HCl 300 MG] capsule 8h Oct, Oct, 10 days Active predniSONE predniSONE Corticoster 60 mg 10-16-19 Active no PredniSONE no 20 mg oral Translation oid 18 - information 20 MG Orall y name tablet (2 s: [ 10-25-19 3 tablets x sources.) PredniSONE 18 3 days, 20 MG] followed by 2 tablets x 3 days, followed by 1 tablet x 3 days. as directed Oct, Oct, 9 days Active Problems Active Problems Problem Normalized Date Last Normalized Normalized Provider Fa cility Classification Problem(s) Recorded Problem Problem Sta tus Duration Allergic Allergy status Episodic Active CATALINA CAMPOS Via reactions (11 to [facility] sources.) sulfonamides Hospital - status [place] Translations: ([address]) [ ALLERGY STATUS TO NARCOTIC AGENT STATUS, - Dermatitis L30.9] External cause Bitten or Episodic Active LYUBOV Cher ty codes: stung by EDGAR [id number] [facility] Natural/enviro nonvenomous of [facility] (3 insect and [place] ([address]) sources.) other nonvenomous arthropods, initial encounter Translations: [ - Bitten or stung by nonvenomous insect and other nonvenomous arthropods, initial encounter W57.XXXA] Chronic Bronchitis, Episodic Active CATALINA CAMPOS Vi a obstructive not specified [facility] pulmonary as acute or Hospital - disease and chronic [place] bronchiectasis ([address]12) (4 sources.) Inflammation, Cellulitis of Episodic Active RUBIN Comm unity infection of bilateral [facility] eye (8 orbits [address] of [facility] sources.) Translations: [place] ([address]) [ - Cellulitis of bilateral orbits H05.013, - Cellulitis of bilateral orbits H05.013] Other lower Cough Episodic Active CATALINA CAMPOS Via respiratory [employer] [facility] disease (4 Hospital - sources.) [place] ([address]) Superficial Injury of Episodic Active [facility] injury; conjunctiva [address] contusion (6 and corneal of [place] sources.) abrasion [place] ([address]) without foreign body, right eye, initial encounter Translations: [ - Abrasion of right cornea, initial encounter S05.01XA, - Insect bite (nonvenomous) of unspecified back wall of thorax, initial encounter S20.469A] Menstrual Irregular Chronic Active [facility] disorders ([address] sources.) Translations: of [place] [ Irregular [place] ([address]) menstrual bleeding, - Irregular menstrual bleeding N92.6] Skin and Local Episodic Active [facility] subcutaneous infection of [address] tissue the skin and of [facility] infections (3 subcutaneous [place] ([address]) sources.) tissue, unspecified Translations: [ - Local infection of the skin and subcutaneous tissue, unspecified L08.9] Spondylosis; Low back pain Episodic Active TOMASA [facility] V ia intervertebral Translations: ROGER MORENO disc [ - Low back Hospital - disorders; pain, [place] other back unspecified ([address]) problems (21 back pain sources.) laterality, unspecified chronicity, with sciatica presence unspecified M54.5, Back pain of lumbar region with sciatica, Back pain of lumbar region with sciatica, - Back pain of lumbar region with sciatica M54.40, PAIN IN THORACIC SPINE, Back pain of lumbar region with sciatica, - Low back pain, unspecified back pain laterality, unspecified chronicity, with sciatica presence unspecified M54.5, - Back pain of lumbar region with sciatica M54.40, PAIN IN THORACIC SPINE, RADICULOPATHY, LUMBAR REGION] Substance-rela Nicotine Chronic Active SHAYNA SAXENA [facility] Via kodi disorders dependence, [facility] (3 sources.) unspecified, Hospital - uncomplicated [place] ([address]) Other skin Other Episodic Active ALEX MONTERROSO [facility] Via disorders (4 specified , [facility] sources.) disorders of Hospital - the skin and [place] subcutaneous (10029) tissue Other female Personal Episodic Active CATALINA DILLARD V ia genital history of [facility] disorders (3 other diseases Hospital - sources.) of the female [place] genital tract (29[address]) Spondylosis; Spondylosis Chronic Active TOMASA [facility] Via intervertebral without ROGER MORENO disc myelopathy or Hospital - disorders; radiculopathy, [place] other back lumbosacral (23611) problems (4 region sources.) Residual Tobacco use Episodic Active ALEX MONTERROSO [facility] V ia codes; , [facility] unclassified Hospital - (2 sources.) [place] ([address]) Contraceptive Tubal ligation Episodic Active SHAYNA HEMANTH , [facility] Via and status [facility] procreative Hospital - management (3 [place] sources.) ([address]) Past or Other Problems Problem Normalized Date Last Normalized Normalized Provider Fa cility Classification Problem(s) Recorded Problem Problem Sta tus Duration Nonmalignant Diffuse cystic Chronic Completed LYUBOV Not Available breast mastopathy of DONOVAN (54639) conditions (4 left breast sources.) Translations: [ DIFFUSE CYSTIC MASTOPATHY OF RIGHT BREAS, MASTODYNIA] Procedures Procedure Normalized Procedure Procedure Result Performer Facility Date 06-01-2014 Acute hepatitis panel no information no name [facility] (07952) 06-01-2014 Blood count complete no information no name [facility] auto&auto difrntl wbc [facility] (27237) 06-01-2014 Collection venous no information no name [facility] blood venipuncture [facility] (36427) 06-01-2014 Hepatic function panel no information no name [facility] (19952) 10-22-2017 Urnls dip stick/tablet no information no name [facility] auto w/o [facility] (39845) 06-01-2014 Urnls dip stick/tablet no information no name [facility] auto w/o [facility] (64533) 06-01-2014 X-ray exam of abdomen no information no name [facility] (19150) Immunizations The data below is from unstructured sources No Known Immunizations No Known Immunizations No Known Immunizations No Known Immunizations No Known Immunizations No Known Immunizations No Known Immunizations No Known Immunizations No Known Immunizations No Known Immunizations No Known Immunizations No Known Immunizations No Known Immunizations No Known Immunizations No Known Immunizations No Known Immunizations No Known Immunizations Results Test Name Value Interpretation Reference Range Date Time Fa cility (Normalized) (Normalized) (Medline Reference) ua long dip (in house) on null Glucose Test Negative (no code) [facility] strip mass conc Center of (U) [facility] (27514) Protein mass Negative (no code) 0 - 20 mg/dL [facility] ealth conc (U) [facility] (02167) UA LONG DIP (IN 03-08-2018 (no code) [facility]) [facility] (69478) UA LONG DIP (IN clear (no code) [facility]) [facility] (93754) UA LONG DIP (IN yellow (no code) [facility]) [facility] (29229) UA LONG DIP (IN none (no code) [facility]) [facility] (44023) UA LONG DIP (IN Negative (no code) [facility]) [facility] (63524) UA LONG DIP (IN 651994 (no code) [facility]) [facility] (03373) UA LONG DIP (IN trace-intact (no code) [facility]) [facility] (58331) UA LONG DIP (IN 8.0 (no code) [facility]) [facility] (56260) UA LONG DIP (IN 1.015 (no code) [facility]) [facility] (99534) UA LONG DIP (IN 0.2 (no code) [facility]) [facility] (78181) UA LONG DIP ([place] 92813P (no code) [facility]) [facility] (39247) UA LONG DIP (IN Mar 2018 (no code) [facility]) [facility] (39057) not yet categorized on null Exp date 03/2019 (no code) [facility] (66777) Lot # [id number] (no code) [facility] (72049) urinalysis on 2017-10-22 Protein mass Negative (no code) 0 - 20 mg/dL no informat ion conc (U) other on 2017-10-22 BLO trace-intact (no code) no information Exp date Negative (no code) no information KET 03-08-2018~clear (no code) no informatio n ~yellow~none~neg ative~negative~n egative Lot # [id number] (no code) no information SG 1.015 (no code) no information URO 0.2 (no code) no information hematology on 2017-10-22 pH (Bld) 8.0 [pH] (no code) 7.38 - 7.42 [pH] no infor mation Vital Signs Vital Sign Value Interpretation Reference Date Time Care Prov ider Facility (Normalized) (Normalized) Range BMI (Body Mass 24.23 kg/m2 (no code) 15 - 25 kg/m2 10-22-2017 KR ISTIN Community [facility]) 15:45-0400 [place] [id number] [place] [address] (96922) BMI (Body Mass 24.34 kg/m2 (no code) 15 - 25 kg/m2 10-15-2017 KR ISTIN Community Index) 13:50-0400 [facility] [id number] [place] [address] (51723) Body height 160.02 cm (no code) cm 06-01-2014 BIRDIE Co [facility]munity 13:40-[address] ([address]) Body height 160.02 cm (no code) cm 05-01-2014 LYUBOV Co mmunity 10:44-[address] ([address]) Body 98.7 [degF] (no code) 97.8 - 99.0 10-22-2017 [facility] Temperature [degF] 15:45-0400 [facility] [address] [facility] (68902) Body 97.9 [degF] (no code) 97.8 - 99.0 10-15-2017 [facility] [degF] 13:50-0400 [facility] [address] [facility] (69365) Body 97.3 [degF] (no code) 97.8 - 99.0 06-08-2014 [facility] Temperature [degF] 08:18-0500 [place] [address] of [facility] (87420) Body 98.3 [degF] (no code) 97.8 - 99.0 06-01-2014 [facility] temperature [degF] 13:40-0500 [place] [address] of [facility] ([address]) Body 97.2 [degF] (no code) 97.8 - 99.0 05-01-2014 [facility] temperature [degF] 10:44-[address] ([address]) Body weight 61.83 kg (no code) kg 06-08-2014 BIRDIE Com munity 08:18-[address] ([address]) Body weight 62.55 kg (no code) kg 06-01-2014 [facility] 13:40-[address] ([address]) Body weight 62.32 kg (no code) kg 05-01-2014 LYUBOV [facility] munity 10:44-[address] ([address]) Height 160.02 cm (no code) cm 10-22-2017 RUBIN Commu nity 15:45-[address] ([address]) Height 160.02 cm (no code) cm 10-15-2017 RUBIN Commu nity 13:50-[address] ([address]) Height 160.02 cm (no code) cm 06-08-2014 BIRDIE Commu nity 08:18-[address] ([address]) Weight 62.05 kg (no code) kg 10-22-2017 RUBIN Cameron it[facility] 15:45-[address] ([address]) Weight 62.32 kg (no code) kg 10-15-2017 RUBIN Cameron ity 13:50-0400 [facility] [address] [facility] (92997) Interventions No Information Plan of Treatment The data below is from unstructured sources Discharge Date 12/20/16 12:35pm Disposition 01 HOME, SELF-CARE Condition at Discharge Stable Instructions/Education Provided Inez l Gastroenteritis Forms Provided Work Release Form Prescriptions See Medication Section Referrals NO,LOCAL PHYSICIAN Order Date: Primary Care Physician Additional Instructions/Education Dr moisés sandoval of fluids. Use the nausea medicine every 6 hours under your tongue as needed to control your nausea, Zofran. If your symptoms persist for more than 7-10 days then you should follow up with her primary care physician and consider alternative diagnoses. If you're having loose stools for more than 48 hours it's reasonable to take Imodium 4 mg, 2 tablets and then every 4 hours after that if you're still having loose stools you should take one tablet. All discharge instructions reviewed with patient and/or family. Voiced understanding. Activity Details Follow Up prn Reason: Goals No Information Social History No Information Functional Status The data below is from unstructured sourcesNo functional status information available. Mental Status No Information Encounters Encounter Normalized Encounter Encounter Diagnosis Care Provi carlos Organization Date Type 10-22-2017 (WALK-IN) Walk-In Care Low back pain RUBIN Orr (no [facility] - phone) RUBIN CARE (no phone) 10-22-2017 [facility] (no phone) - RUBIN Christopher (no 10-22-2017 phone) 10-15-2017 (WALK-IN) Walk-In Care Lumbago with sciatica, RUBIN PETERSON (no [facility] - unspecified side phone) RUBIN CARE (no phon e) 10-15-2017 [facility] (no phone) - RUBIN Christopher (no 10-15-2017 phone) 12-25-2018 [facility] Injury of conjunctiva NIKI ORE LLANA (no [facility] CARE and corneal abrasion phone) CARE (no phone) without foreign body, right eye, initial encounter 11-22-2018 [facility] Irregular GHASSAN DREW (n o [facility] CARE menstruation, phone) CARE (no phone) unspecified 10-24-2018 [facility] Insect bite KADEEM NINODONATOZhou (no [facility] CARE (nonvenomous) of phone) CARE (no phon e) unspecified back wall of thorax, initial encounter 09-02-2019 Emergency department no information MARILOU HOOVER [facility] patient visit (no phone) [facility] (no phone) 06-30-2019 Emergency department no information DILLON MORTON MD [facility] - patient visit (no phone) MARIELY [facility] 06-30-2019 SHEREEN RAMOS (no phone) (no phone) MARIELY REGAN APRN (no phone) 06-24-2019 Emergency department no information SHAYNA SAXENA MD (no [facility] - patient visit phone) [facility] 06-24-2019 (no phone) 12-20-2016 Emergency department no information SHAYNA SAXENA MD (no [facility] - patient visit phone) [facility] 12-20-2016 (no phone) NEGATED Patient encounter no information no name no or ganization name 10-23-2017 10-22-2017 Patient encounter no information no name no or ganization name 10-16-2017 Patient encounter no information no name no or ganization name NEGATED Patient encounter no information no name no or ganization name 10-15-2017 06-22-2017 Patient encounter no information no name no or ganization name 04-30-2017 Patient encounter no information no name no or ganization name 02-17-2016 Patient encounter no information no name no or ganization name 06-30-2019 Patient encounter no information MARIELY REGAN APRN (no [facility] procedure phone) [facility] (no phone) 05-30-2019 Patient encounter no information LILIA CHOI DO (no [facility] procedure phone) [facility] (no phone) 12-25-2018 Patient encounter no information no name no or ganization name procedure 12-25-2018 Patient encounter no information no name no or ganization name procedure 11-22-2018 Patient encounter no information no name no or ganization name procedure 11-22-2018 Patient encounter no information no name no or ganization name procedure 10-24-2018 Patient encounter no information no name no or ganization name procedure 10-23-2017 Patient encounter no information TOMASA MORENO [facility] procedure VIRTUALIZATION CONSULTANT (no phone) [facility] (no phone) 10-16-2017 Patient encounter no information TOMASA MORENO [facility] procedure VIRTUALIZATION CONSULTANT (no phone) [facility] (no phone) 06-22-2017 Patient encounter no information ALEX A LOC Markel Aruna [facility] procedure (no phone) [facility] (no phone) 02-17-2016 Patient encounter no information LYUBOV DONOVAN APRN [facility] procedure (no phone) [facility] (no phone) 05-30-2019 no information Encounter for general no name n o organization name adult medical examination without abnormal findings no information Encounter for general no name no organ ization name adult medical examination without abnormal findings Medical Equipment No Information Payers No Information History general Narrative - Reported 2015-07-09 Note Type Note Facility History general Narrative - Reported Type Surgical C4 C5 titanium plate placed 07/2015 History [facility] ([id number]) Summary Purpose eClinicalWorks Submission Advance Directives Directive Response Recor ded Date/Time Advance Directives No 10:36am Resuscitation Status Full Code 12/20/16 10:36am Discharge Instructions No hospital discharge instruction information available. Additional Source Comments This clinical document has been generated using [employer] software that has been certified by the Office of the National Coordinator for Health Information Technology (ONC 15.99.04.3023.Diam.31.00.0.848765) and the National Committee for Membership Solicitor (NCQA, as an eMeasure certified technology). FOR RECORDS PERTAINING TO PATIENTS WHO ARE OR HAVE BEEN ENROLLED IN A CHEMICAL D EPENDENCY/SUBSTANCE ABUSE PROGRAM, SOME INFORMATION MAY BE OMITTED. This clinica l summary was aggregated from multiple sources. Caution should be exercised in using it in the provision of clinical care. This summary normalizes information from multiple sources, and as a consequence, information in this document may ma terially change the coding, format and clinical context of patient data. In tenisha tion, data may be omitted in some cases. CLINICAL DECISIONS SHOULD BE BASED ON T HE PRIMARY CLINICAL RECORDS. [employer]. provides no warranty or guara ntee of the accuracy or completeness of information in this document.The followi ng information is based on time limited clinical information UNRECOGNIZED CONTENT PROVIDED BELOW FOR UNRECOGNIZED SECTION MEDICAL (GENERAL) HISTORY Type Description Date Surgical History C4 C5 titanium plat e placed 07/2015 UNRECOGNIZED CONTENT PROVIDED BELOW FOR UNRECOGNIZED SECTION REASON FOR VISIT pain in lower back and leg/mid to lower back pain and down the left leg with tin gling in the bottom of the lt foot. 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
--- OUTSIDE RECORDS SUMMARY | 2019-09-02 14:39 | XMS REPORT ---
Author Author Aby MIRANDA Organization [facility] Address [address] [place] [address] Care Team Providers Care Synchro Assembler Name Role Phone BIRDIE MIRANDA Unavailable PROBLEMS Type Condition ICD9-CM Code DAR11-TQ Code Onset Dates Condition S tatus SNOMED Code Problem Back pain of lumbar region with sciatica M54.40 Active 756330228 Problem Irregular menstrual bleeding N92.6 A ctive 97944517 Problem Diffuse cystic mastopathy of left breast N60.12 Active 48762068 Problem Diffuse cystic mastopathy of right breast N60.11 Active [id number] ALLERGIES No Information ENCOUNTERS Encounter Location Date Diagnosis [facility] [address] [place] [id number] Dec, Abrasion of right cornea, in itial encounter S05.01XA [facility] [address] [place] [phone] Nov, Irregular menstrual bleeding N92.6 [facility] [address] [place] [id number] Oct, Insect bite (nonvenomous) of unspecified back wall of thorax, initial encounter S20.469A ; Local infection of the skin and subcutaneous tissue, unspecified L08.9 ; Bitten or stung by nonvenomous insect and other nonvenomous arthropods, initial encounter W57.XXXA and Dermatitis L30.9 [facility] [address] [place] [phone] Oct, Low back pain, unspecified b ack pain laterality, unspecified chronicity, with sciatica presence unspecified M54.5 and Cellulitis of bilateral orbits H05.013 [facility] [address] [place], [place] [id number] [address] [place] [phone] Oct, Back pain of lumbar region w ith sciatica M54.40 [facility] [address] [id number] [address] [place] [phone] Apr, Dental infection K04.7 [id number] [place] [id number] Feb, Family history of breast cancer Z80.3 ; Breast pain, left N64.4 ; Fibrocystic breast changes, left N60.12 and Fibrocystic breast changes, right N60.11 [facility] [address] [id number] [address] [place] [phone] Jul, [facility] [address] [facility] [id number] [address] [place] [phone] Jul, [facility] [address] [facility] [id number] [address] [place] [phone] Jun, [facility] [address] [facility] [id number] [address] [place] [phone] Jun, [facility] [address] [facility] [id number] [address] [place] [phone] May, [facility] [address] [facility] [id number] [address] [place] [phone] May, [facility] [address] [facility] [id number] [address] [place] [phone] May, [facility] [address] [facility] [id number] [address] [place] [phone] May, [facility] [address] [facility] [id number] [address] [place] [phone] Apr, [facility] [address] [facility] [id number] [address] [place] [phone] Apr, IMMUNIZATIONS No Known Immunizations SOCIAL HISTORY Never Assessed REASON FOR VISIT PLAN OF CARE VITAL SIGNS Height 63 in 2014-06-01 Weight 137.9 lbs 2014-06-01 Temperature 98.3 degrees Fahrenheit 2014-06-01 Heart Rate 88 bpm 2014-06-01 Respiratory Rate 18 2014-06-01 Blood pressure systolic 110 mmHg 2014-06-01 Blood pressure diastolic 64 mmHg 2014-06-01 MEDICATIONS No Known Medications RESULTS No Results PROCEDURES Procedure Date Ordered Result Body Site COMPLETE CBC W/AUTO DIFF WBC Jun 01, 2014 HEPATIC FUNCTION PANEL Jun 01, 2014 ACUTE HEPATITIS PANEL Jun 01, 2014 X-RAY EXAM OF ABDOMEN Jun 01, 2014 URINALYSIS, AUTO, W/O SCOPE Jun 01, 2014 VENIPUNCT, ROUTINE* Jun 01, 2014 INSTRUCTIONS MEDICATIONS ADMINISTERED No Known Medications MEDICAL (GENERAL) HISTORY Type Description Date Surgical History C4 C5 titanium plate placed 07/2015
--- OUTSIDE RECORDS SUMMARY | 2019-09-02 14:39 | XMS REPORT | Continuity of Care Document ---
Author Organization Unknown Address Unknown Phone Unavailable Allergies Active Description Code Type Severity Reaction Onset Reported/Identified Relationship to Patient Clinical Status Yes codeine [id number] Drug Allergy Unknown N/A 12/20/2016 Yes sulfamethoxazole [id number] Drug Allergy Unknown N/A 12/20/2016 Yes trimethoprim [id number] Drug Allergy Unknown N/A 12/20/2016 Medications There is no data. 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 02/18/2016 LYUBOV DONOVAN APRN Ot N64.4 MASTODYNIA 02/18/2016 LYUBOV DONOVAN APRN Ot Z80.3 FAMILY HISTORY OF MALIGNANT NEOPLASM OF 02/18/2016 LYUBOV DONOVAN APRN Ot 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 02/18/2016 LYUBOV DONOVAN APRN Ot 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 02/18/2016 LYUBOV DONOVAN APRN Ot N64.4 MASTODYNIA 02/18/2016 LYUBOV DONOVAN APRN Ot Z80.3 FAMILY HISTORY OF MALIGNANT NEOPLASM OF 02/23/2016 LYUBOV DONOVAN APRN Ot 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 02/23/2016 DONOVAN, LYUBOV J HEAD OF VISUAL MERCHANDISING Ot 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 02/23/2016 LYUBOV DONOVAN HEAD OF VISUAL MERCHANDISING Ot N64.4 MASTODYNIA 02/23/2016 LYUBOV DONOVAN HEAD OF VISUAL MERCHANDISING Ot Z80.3 FAMILY HISTORY OF MALIGNANT NEOPLASM OF 12/20/2016 LYUBOV DONOVAN HEAD OF VISUAL MERCHANDISING Ot 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 9 NONINFECTIVE GASTROENTERITIS AND COLITIS 12/20/2016 SHAYNA SAXENA MD Ot R10. 12 LEFT UPPER QUADRANT PAIN 12/20/2016 SHAYNA SAXENA MD Ot Z87. 42 PERSONAL HISTORY OF OTH DISEASES OF THE 12/20/2016 SHAYNA SAXENA MD Ot Z98. 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 9 NONINFECTIVE GASTROENTERITIS AND COLITIS 12/22/2016 SHAYNA SAXENA MD Ot R10. 12 LEFT UPPER QUADRANT PAIN 12/22/2016 SHAYNA SAXENA MD Ot Z87. 42 PERSONAL HISTORY OF OTH DISEASES OF THE 12/22/2016 SHAYNA SAXENA MD Ot Z98. 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 06/22/2017 LYUBOV DONOVAN APRN Ot N64.4 MASTODYNIA 06/22/2017 LYUBOV DONOVAN HEAD OF V[employer] MERCHANDISING Ot Z80.3 FAMILY HISTORY OF MALIGNANT NEOPLASM OF 06/25/2017 LOC MOY, ALEX A Ot L98.8 OTH DISRD OF THE SKIN AND SUBCUTANEOUS T 06/25/2017 ALEX MONTERROSO MD Ot Z00.00 ENCNTR FOR GENERAL ADULT MEDICAL EXAM W06/25/2017 ALEX MONTERROSO MD Ot Z72.0 TOBACCO USE 07/04/2017 ALEX MONTERROSO MD Ot L98.8 OTH DISRD OF THE SKIN AND SUBCUTANEOUS T 07/04/2017 ALEX MONTERROSO MD Ot Z00.00 ENCNTR FOR GENERAL ADULT MEDICAL EXAM W07/04/2017 ALEX MONTERROSO MD Ot Z72.0 TOBACCO USE 10/17/2017 TOMASA MORENO SOFA INSPECTOR Ot M54.5 LOW BACK PAIN 10/17/2017 TOMASA MORENO SOFA INSPECTOR Ot M54.6 PAIN IN THORACIC SPINE 10/17/2017 TOMASA MORENO SOFA INSPECTOR Ot M54.5 LOW BACK PAIN 10/17/2017 TOMASA MORENO SOFA INSPECTOR Ot M54.6 PAIN IN THORACIC SPINE 10/24/2017 TOMASA MORENO SOFA INSPECTOR Ot M47.817 SPONDYLS W/O MYELOPATHY OR RADICULOPATHY 10/31/2017 TOMASA MORENO SOFA INSPECTOR Ot M54.5 LOW BACK PAIN 10/31/2017 TOMASA MORENO SOFA INSPECTOR Ot M54.6 PAIN IN THORACIC SPINE 05/30/2019 LYUBOV DONOVAN HEAD OF VIS[employer] MERCHANDISING Ot 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 05/30/2019 LYUBOV DONOVAN HEAD OF VIS[employer] MERCHANDISING Ot 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 05/30/2019 LYUBOV DONOVAN HEAD OF VISUAL MERCHANDISING Ot N64.4 MASTODYNIA 05/30/2019 LYUBOV DONOVAN HEAD OF VISUAL MERCHANDISING Ot Z80.3 FAMILY HISTORY OF MALIGNANT NEOPLASM OF 05/30/2019 ALEX MONTERROSO MD Ot L98.8 OTH DISRD OF THE SKIN AND SUBCUTANEOUS T 05/30/2019 ALEX MONTERROSO MD Ot Z00.00 ENCNTR FOR GENERAL ADULT MEDICAL EXAM W05/30/2019 ALEX MONTERROSO MD Ot Z72.0 TOBACCO USE 05/30/2019 TOMASA MORENO SOFA INSPECTOR Ot M54.5 LOW BACK PAIN 05/30/2019 TOMASA MORENO SOFA INSPECTOR Ot M54.6 PAIN IN THORACIC SPINE 05/30/2019 TOMASA MORENO SOFA INSPECTOR Ot M47.817 SPONDYLS W/O MYELOPATHY OR RADICULOPATHY 06/04/2019 STEPH BRISENO LLIIA Jean Baptiste Ot M54.16 RADICULOPATHY, LUMBAR REGION 06/23/2019 STEPH BRISENO LILIA Markel Ot M54.16 RADICULOPATHY, LUMBAR REGION 07/06/2019 MARIELY REGAN APRN Ot J40 BRONCHITIS, NOT SPECIFIED ACUTE OR CH 07/06/2019 REGANMARIELY ALFARO HEAD OF VISUAL MERCHANDISING Ot R05 COUGH 07/06/2019 MARIELY REGAN APRN Ot Z88 .2 ALLERGY STATUS TO SULFONAMIDES STATUS 07/06/2019 MARIELY REGAN APRN Ot Z88 .5 ALLERGY STATUS TO NARCOTIC AGENT STATUS 07/08/2019 SHEREEN, MARIELY Cornejo APRN Ot J40 BRONCHITIS, NOT SPECIFIED ACUTE OR CH 07/08/2019 MARIELY REGAN APRN Ot R05 COUGH 07/08/2019 MARIELY REGAN APRN Ot Z88 .2 ALLERGY STATUS TO SULFONAMIDES STATUS 07/08/2019 MARIELY REGAN HEAD OF VISUAL MERCHANDISING Ot Z88 .5 ALLERGY STATUS TO NARCOTIC AGENT STATUS 07/10/2019 SHEREEN, MARIELY Cornejo APRN Ot J40 BRONCHITIS, NOT SPECIFIED ACUTE OR CH 07/10/2019 MARIELY REGAN APRN Ot R05 COUGH 07/10/2019 MARIELY REGAN APRN Ot Z88 .2 ALLERGY STATUS TO SULFONAMIDES STATUS 07/10/2019 MARIELY REGAN APRN Ot Z88 .5 ALLERGY STATUS TO NARCOTIC AGENT STATUS Procedures There is no data. Results Test Result Range Complete urinalysis with reflex to cultu re - 12/20/16 10:25 Urine color determination YELLOW NRG Urine clarity determination SLIGHTLY CLOUDY NRG Urine pH measurement by test strip 8 5-9 Specific gravity of urine by test strip 1.010 1.016-1.022 Urine protein assay by test strip, semi-quantitative NEGATIVE NEGATIVE Urine glucose detection by automated test strip NE GATIVE NEGATIVE Erythrocytes detection in urine sediment by light micr oscopy 1+ NEGATIVE Urine ketones detection by automated test strip NE GATIVE NEGATIVE Urine nitrite detection by test strip NEGATIVE NEGATIVE Urine total bilirubin detection by test strip NEGA TIVE NEGATIVE Urine urobilinogen measurement by automated test strip (mass/volume) NORMAL NORMAL Urine leukocyte esterase detection by dipstick NEG ATIVE NEGATIVE Automated urine sediment erythrocyte cou nt by microscopy (number/high power field) RARE NRG Automated urine sediment leukocyte count by microscopy (number/high power field) RARE NRG Bacteria detection in urine sediment by light microsco py NEGATIVE NRG Squamous epithelial cells detection in u rine sediment by light microscopy 5-10 NRG Crystals detection in urine sediment by light microsco py PRESENT NRG Casts detection in urine sediment by light microscopy NONE NRG Mucus detection in urine sediment by light microscopy NEGATIVE NRG Complete urinalysis with reflex to culture NO NRG Amorphous sediment detection in urine sediment by ligh t microscopy MOD SAUL PHOSPHATE NRG Complete blood count (CBC) with automate d white blood cell (WBC) differential - 12/20/16 11:02 Blood leukocytes automated count (number/volume) 5.1 10*3/uL 4.3-11.0 Blood erythrocytes automated count (number/volume) 4.42 10*6/uL 4.35-5.85 Venous blood hemoglobin measurement (mass/volume) 13.2 g/dL 11.5-16.0 Blood hematocrit (volume fraction) 39 % 35-52 Automated erythrocyte mean corpuscular volume 89 [ foz_us] 80-99 Automated erythrocyte mean corpuscular h emoglobin (mass per erythrocyte) 30 pg 25-34 Automated erythrocyte mean corpuscular h emoglobin concentration measurement (mass/volume) 34 g/dL 32-36 Automated erythrocyte distribution width ratio 12. 7 % 10.0- 14.5 Automated blood platelet count (count/volume) 292 10*3/uL 130-400 Automated blood platelet mean volume measurement 10.2 [foz_us] 7.4-10.4 Automated blood neutrophils/100 leukocytes 46 % 42-75 Automated blood lymphocytes/100 leukocytes 44 % 12-44 Blood monocytes/100 leukocytes 6 % 0-12 Automated blood eosinophils/100 leukocytes 3 % 0-10 Automated blood basophils/100 leukocytes 1 % 0-10 Blood neutrophils automated count (number/volume) 2.3 10*3 1.8-7.8 Blood lymphocytes automated count (number/volume) 2.3 10*3 1.0-4.0 Blood monocytes automated count (number/volume) 0. 3 10*3 0.0-1.0 Automated eosinophil count 0.2 10*3/uL 0 .0-0.3 Automated blood basophil count (count/volume) 0.0 10*3/uL 0.0-0.1 Comprehensive metabolic panel - 12/20/16 11:02 Serum or plasma sodium measurement (moles/volume) 139 mmol/L 135-145 Serum or plasma potassium measurement (moles/volume) 4.0 mmol/L 3.6-5.0 Serum or plasma chloride measurement (moles/volume) 108 mmol/L 98-107 Carbon dioxide 25 mmol/L 21-32 Serum or plasma anion gap determination (moles/volume) 6 mmol/L 5-14 Serum or plasma urea nitrogen measurement (mass/volume ) 8 mg/dL 7-18 Serum or plasma creatinine measurement (mass/volume) 0.73 mg/dL 0.60-1.30 Serum or plasma urea nitrogen/creatinine mass ratio 11 NRG Serum or plasma creatinine measurement w ith calculation of estimated glomerular filtration rate > NRG Serum or plasma glucose measurement (mass/volume) 83 mg/dL 70-105 Serum or plasma calcium measurement (mass/volume) 9.0 mg/dL 8.5-10.1 Serum or plasma total bilirubin measurement (mass/volu me) 0.4 mg/dL 0.1-1.0 Serum or plasma alkaline phosphatase serene surement (enzymatic activity/volume) 82 U/L 40-136 Serum or plasma aspartate aminotransfera se measurement (enzymatic activity/volume) 16 U/L 5-34 Serum or plasma alanine aminotransferase measurement (enzymatic activity/volume) 12 U/L 0-55 Serum or plasma protein measurement (mass/volume) 6.8 g/dL 6.4-8.2 Serum or plasma albumin measurement (mass/volume) 3.9 g/dL 3.2-4.5 Lipase - 12/20/16 11:02 Lipase 7 U/L 8-78 Complete blood count (CBC) with automate d white blood cell (WBC) differential - 06/22/17 08:35 Blood leukocytes automated count (number/volume) 4.8 10*3/uL 4.3-11.0 Blood erythrocytes automated count (number/volume) 4.40 10*6/uL 4.35-5.85 Venous blood hemoglobin measurement (mass/volume) 13.3 g/dL 11.5-16.0 Blood hematocrit (volume fraction) 39 % 35-52 Automated erythrocyte mean corpuscular volume 89 [ foz_us] 80-99 Automated erythrocyte mean corpuscular h emoglobin (mass per erythrocyte) 30 pg 25-34 Automated erythrocyte mean corpuscular h emoglobin concentration measurement (mass/volume) 34 g/dL 32-36 Automated erythrocyte distribution width ratio 12. 8 % 10.0- 14.5 Automated blood platelet count (count/volume) 297 10*3/uL 130-400 Automated blood platelet mean volume measurement 10.0 [foz_us] 7.4-10.4 Automated blood neutrophils/100 leukocytes 53 % 42-75 Automated blood lymphocytes/100 leukocytes 38 % 12-44 Blood monocytes/100 leukocytes 6 % 0-12 Automated blood eosinophils/100 leukocytes 2 % 0-10 Automated blood basophils/100 leukocytes 1 % 0-10 Blood neutrophils automated count (number/volume) 2.6 10*3 1.8-7.8 Blood lymphocytes automated count (number/volume) 1.8 10*3 1.0-4.0 Blood monocytes automated count (number/volume) 0. 3 10*3 0.0-1.0 Automated eosinophil count 0.1 10*3/uL 0 .0-0.3 Automated blood basophil count (count/volume) 0.1 10*3/uL 0.0-0.1 Comprehensive metabolic panel - 06/22/17 08:35 Serum or plasma sodium measurement (moles/volume) 138 mmol/L 135-145 Serum or plasma potassium measurement (moles/volume) 4.0 mmol/L 3.6-5.0 Serum or plasma chloride measurement (moles/volume) 106 mmol/L 98-107 Carbon dioxide 25 mmol/L 21-32 Serum or plasma anion gap determination (moles/volume) 7 mmol/L 5-14 Serum or plasma urea nitrogen measurement (mass/volume ) 10 mg/dL 7-18 Serum or plasma creatinine measurement (mass/volume) 0.79 mg/dL 0.60-1.30 Serum or plasma urea nitrogen/creatinine mass ratio 13 NRG Serum or plasma creatinine measurement w ith calculation of estimated glomerular filtration rate > NRG Serum or plasma glucose measurement (mass/volume) 90 mg/dL 70-105 Serum or plasma calcium measurement (mass/volume) 8.6 mg/dL 8.5-10.1 Serum or plasma total bilirubin measurement (mass/volu me) 0.4 mg/dL 0.1-1.0 Serum or plasma alkaline phosphatase serene surement (enzymatic activity/volume) 77 U/L 40-136 Serum or plasma aspartate aminotransfera se measurement (enzymatic activity/volume) 20 U/L 5-34 Serum or plasma alanine aminotransferase measurement (enzymatic activity/volume) 18 U/L 0-55 Serum or plasma protein measurement (mass/volume) 6.2 g/dL 6.4-8.2 Serum or plasma albumin measurement (mass/volume) 4.1 g/dL 3.2-4.5 Lipid 1996 panel - 06/22/17 08:35 Serum or plasma triglyceride measurement (mass/volume) 55 mg/dL <150 Serum or plasma cholesterol measurement (mass/volume) 191 mg/dL < 200 Serum or plasma cholesterol in HDL measurement (mass/v olume) 40 mg/dL 40-60 Cholesterol in LDL [mass/volume] in serum or plasma by direct assay 141 mg/dL 1-129 Serum or plasma cholesterol in VLDL measurement (mass/ volume) 11 mg/dL 5-40 THYROID STIMULATING HORMONE - 06/22/17 0 8:35 THYROID STIMULATING HORMONE 1.50 u[iU]/mL 0.35-4.94 Complete urinalysis with reflex to cultu re - 06/24/19 15:00 Urine color determination YELLOW NRG Urine clarity determination CLEAR NR G Urine pH measurement by test strip 7.0 5-9 Specific gravity of urine by test strip 1.010 1.016-1.022 Urine protein assay by test strip, semi-quantitative NEGATIVE NEGATIVE Urine glucose detection by automated test strip NE GATIVE NEGATIVE Erythrocytes detection in urine sediment by light micr oscopy 2+ NEGATIVE Urine ketones detection by automated test strip NE GATIVE NEGATIVE Urine nitrite detection by test strip NEGATIVE NEGATIVE Urine total bilirubin detection by test strip NEGA TIVE NEGATIVE Urine urobilinogen measurement by automated test strip (mass/volume) 0.2 mg/dL < = 1.0 Urine leukocyte esterase detection by dipstick NEG ATIVE NEGATIVE Automated urine sediment erythrocyte cou nt by microscopy (number/high power field) RARE NRG Automated urine sediment leukocyte count by microscopy (number/high power field) NONE NRG Bacteria detection in urine sediment by light microsco py TRACE NRG Squamous epithelial cells detection in u rine sediment by light microscopy 2-5 NRG Crystals detection in urine sediment by light microsco py NONE NRG Casts detection in urine sediment by light microscopy NONE NRG Mucus detection in urine sediment by light microscopy NEGATIVE NRG Complete urinalysis with reflex to culture NO NRG Urine drug screening test - 06/24/19 15: 00 Urine phencyclidine detection by screening method NEGATIVE NEGATIVE Urine benzodiazepines detection by screening method NEGATIVE NEGATIVE Urine cocaine detection NEGATIVE NEGATI VE Urine amphetamines detection by screening method N EGATIVE NEGATIVE Urine methamphetamine detection by screening method NEGATIVE NEGATIVE Urine cannabinoids detection by screening method N EGATIVE NEGATIVE Urine opiates detection by screening method NEGATI VE NEGATIVE Urine barbiturates detection NEGATIVE N EGATIVE Screening urine tricyclic antidepressants detection NEGATIVE NEGATIVE Urine methadone detection by screening method NEGA TIVE NEGATIVE Urine oxycodone detection NEGATIVE NEGA TIVE Urine propoxyphene detection NEGATIVE N EGATIVE Complete blood count (CBC) with automate d white blood cell (WBC) differential - 06/24/19 15:32 Blood leukocytes automated count (number/volume) 6.5 10*3/uL 4.3-11.0 Blood erythrocytes automated count (number/volume) 4.47 10*6/uL 4.35-5.85 Venous blood hemoglobin measurement (mass/volume) 13.4 g/dL 11.5-16.0 Blood hematocrit (volume fraction) 40 % 35-52 Automated erythrocyte mean corpuscular volume 90 [ foz_us] 80-99 Automated erythrocyte mean corpuscular h emoglobin (mass per erythrocyte) 30 pg 25-34 Automated erythrocyte mean corpuscular h emoglobin concentration measurement (mass/volume) 33 g/dL 32-36 Automated erythrocyte distribution width ratio 13. 5 % 10.0- 14.5 Automated blood platelet count (count/volume) 353 10*3/uL 130-400 Automated blood platelet mean volume measurement 9.7 [foz_us] 7.4-10.4 Automated blood neutrophils/100 leukocytes 42 % 42-75 Automated blood lymphocytes/100 leukocytes 49 % 12-44 Blood monocytes/100 leukocytes 6 % 0-12 Automated blood eosinophils/100 leukocytes 3 % 0-10 Automated blood basophils/100 leukocytes 1 % 0-10 Blood neutrophils automated count (number/volume) 2.7 10*3 1.8-7.8 Blood lymphocytes automated count (number/volume) 3.2 10*3 1.0-4.0 Blood monocytes automated count (number/volume) 0. 4 10*3 0.0-1.0 Automated eosinophil count 0.2 10*3/uL 0 .0-0.3 Automated blood basophil count (count/volume) 0.1 10*3/uL 0.0-0.1 Comprehensive metabolic panel - 06/24/19 15:32 Serum or plasma sodium measurement (moles/volume) 139 mmol/L 135-145 Serum or plasma potassium measurement (moles/volume) 3.5 mmol/L 3.6-5.0 Serum or plasma chloride measurement (moles/volume) 104 mmol/L 98-107 Carbon dioxide 28 mmol/L 21-32 Serum or plasma anion gap determination (moles/volume) 7 mmol/L 5-14 Serum or plasma urea nitrogen measurement (mass/volume ) 7 mg/dL 7-18 Serum or plasma creatinine measurement (mass/volume) 0.80 mg/dL 0.60-1.30 Serum or plasma urea nitrogen/creatinine mass ratio 9 NRG Serum or plasma creatinine measurement w ith calculation of estimated glomerular filtration rate > NRG Serum or plasma glucose measurement (mass/volume) 80 mg/dL 70-105 Serum or plasma calcium measurement (mass/volume) 9.1 mg/dL 8.5-10.1 Serum or plasma total bilirubin measurement (mass/volu me) 0.2 mg/dL 0.1-1.0 Serum or plasma alkaline phosphatase serene surement (enzymatic activity/volume) 68 U/L 40-136 Serum or plasma aspartate aminotransfera se measurement (enzymatic activity/volume) 20 U/L 5-34 Serum or plasma alanine aminotransferase measurement (enzymatic activity/volume) 12 U/L 0-55 Serum or plasma protein measurement (mass/volume) 7.1 g/dL 6.4-8.2 Serum or plasma albumin measurement (mass/volume) 4.5 g/dL 3.2-4.5 CALCIUM CORRECTED 8.7 mg/dL 8.5-10.1 Lipase - 06/24/19 15:32 Lipase 13 U/L 8-78 Serum or plasma C reactive protein measu rement (mass/volume) - 06/24/19 15:32 Serum or plasma C reactive protein measurement (mass/v olume) 0.06 mg/dL 0.00-0.50 Streptococcus pyogenes antigen detection - 06/30/19 10:52 Streptococcus pyogenes antigen detection NEGATIVE NEGATIVE Influenza virus A and B antigen detectio n - 06/30/19 10:52 FLU RESULT NEGATIVE FOR INFLUENZA A AND B ANTIGENS BY IA NRG Bacterial throat culture - 06/30/19 10:5 2 Bacterial throat culture NBS NRG Encounters ACCT No. Visit Date/Time Discharge Status Pt. Type Provider Facility Loc./Unit Complaint [id number] 05/25/2017 12:45:18 05/25/2017 23:59:5 9 CLS Outpatient [id number] 12/25/2018 13:40:00 12/25/2018 23:59:5 9 CLS Outpatient [facility] [id number] 06/30/2019 10:49:00 020 11:23:00 DIS Emergency MARIELY REGAN HEAD OF VISUAL MERCHANDISING [facility] ER COUGH [id number] 06/24/2019 14:32:00 020 17:27:00 DIS Emergency SHAYNA SAXENA MD [facility] ER ABD PAIN [id number] 05/30/2019 07:35:00 020 23:59:59 CLS Outpatient LILIA CHOI DO [facility] RAD RADICULOPATHY [id number] 11/06/2017 13:06:00 018 23:59:59 CLS Preadmit SHAYLEE TYLER HEAD OF VISUAL MERCHANDISING [facility] REHAB BACK PAIN [id number] 10/23/2017 09:15:00 018 23:59:59 CLS Outpatient TOMASA MORENO SOFA INSPECTOR [facility] RAD THORACIC AND IZABELA MBAR SPINE PAIN [id number] 10/16/2017 08:57:00 018 23:59:59 CLS Outpatient TOMASA MORENO SOFA INSPECTOR [facility] RAD THORACIC AND IZABELA MBAR SPINE PAIN [id number] 06/22/2017 08:21:00 018 23:59:59 CLS Outpatient ALEX MONTERROSO MD [facility] LAB Z00.00 [id number] 12/20/2016 10:16:00 017 12:35:00 DIS Emergency HEMANTH MOY, SHAYNA Cornejo [facility] ER ABD PAIN--5 DAYS [id number] 02/17/2016 07:09:00 016 23:59:59 CLS Outpatient LYUBOV DONOVAN APRN [facility] RAD BREAST PAIN LT, HX OF BREAST [place] [id number] 09/02/2019 11:38:[address] Emergency DREW MOY, MARILOU Houser [facility] ER BACK PAIN
--- OUTSIDE RECORDS SUMMARY | 2019-09-02 14:39 | XMS REPORT ---
Author Author Aby PETERSON [facility] WALK IN [facility] Address [address] [place] [address] Care Team Providers Care Operations Intern Name Role Phone KRISTEN RUBIN Unavailable PROBLEMS Type Condition ICD9-CM Code [id number] Code Onset Dates Condition S tatus SNOMED Code Problem Back pain of lumbar region with sciatica M54.40 Active 409515663 Problem Diffuse cystic mastopathy of right breast N60.11 Active 20088813 Problem Diffuse cystic mastopathy of left breast N60.12 Active 18902742 ALLERGIES Substance Reaction Event Type Date Status Bactrim hives Drug Allergy Oct, Active Codeine hives and swelling of throat Drug Allergy Oct, Active ENCOUNTERS Encounter Location Date Diagnosis [facility] [address] [id number] [address] [place] [address] Oct, Low back pain, unspecified b ack pain laterality, unspecified chronicity, with sciatica presence unspecified M54.5 and Cellulitis of bilateral orbits H05.013 [facility] WALK IN [facility] [address] [id number] [address] [place] [address] Oct, Back pain of lumbar region w ith sciatica M54.40 [facility] [address] [id number] [address] [place] [phone] Apr, Dental infection K04.[id number] [place] [id number] 08 Feb, 2016 Family history of breast cancer Z80.3 ; Breast pain, left N64.4 ; Fibrocystic breast changes, left N60.12 and Fibrocystic breast changes, right N60.11 [facility] [address] [id number] [address] [place] [address] Jul, [facility] [address] [id number] [address] [place] [phone] Jul, [facility] [address] [id number] [address] [place] [phone] Jun, [facility] [address] [id number] [address] [place] [phone] Jun, [facility] [address] [facility] [id number] [address] [place] [address] May, [facility] [address] [id number] [address] [place] [phone] May, [facility] [address] [facility] [id number] [address] [place] [phone] May, [facility] [address] [facility] [id number] [address] [place] [phone] May, [facility] [address] [facility] [id number] [address] [place] [phone] Apr, [facility] [address] [facility] [id number] [address] [place] [address] Apr, IMMUNIZATIONS No Known Immunizations SOCIAL HISTORY Never Assessed REASON FOR VISIT pain in lower back and leg/mid to lower back pain and down the left leg with tin gling in the bottom of the lt foot. 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 but doesn't there is specific injury._ _ZAKIYA Woodruff PLAN OF CARE Activity Details Follow Up prn Reason: VITAL SIGNS Height 63 in 2017-10-15 Weight 137.4 lbs 2017-10-15 Temperature 97.9 degrees Fahrenheit 2017-10-15 Heart Rate 88 bpm 2017-10-15 Respiratory Rate 18 2017-10-15 BMI 24.34 kg/m2 2017-10-15 Blood pressure systolic 116 mmHg 2017-10-15 Blood pressure diastolic 86 mmHg 2017-10-15 MEDICATIONS Medication Instructions Dosage Frequency Start Date End Date Duration S tatus Hydrocodone-Acetaminophen 5-325 MG Orally every 6 hrs 1 tablet as n eeded 6h Oct, Oct, 5 days Active Cyclobenzaprine HCl 10 MG Orally Three times a day 1 tablet as need ed 8h Oct, Oct, 7 days Active PredniSONE 20 MG Orally 3 tablets x 3 days, f ollowed by 2 tablets x 3 days, followed by 1 tablet x 3 days. as directed Oct, Oct, 9 days Active RESULTS No Results PROCEDURES No Known procedures INSTRUCTIONS MEDICATIONS ADMINISTERED No Known Medications MEDICAL (GENERAL) HISTORY Type Description Date Surgical History C4 C5 titanium plate placed 07/2015
--- OUTSIDE RECORDS SUMMARY | 2019-09-02 14:39 | XMS REPORT ---
Author Author Aby OLIVO Organization [facility] Address [address] [place] [address] Care Team Providers Care Parking Lot Supervisor Name Role Phone FLIP OLIVO Unavailable PROBLEMS Type Condition ICD9-CM Code [id number] Code Onset Dates Condition S tatus SNOMED Code Problem Back pain of lumbar region with sciatica M54.40 Active 798074431 Problem Irregular menstrual bleeding N92.6 A ctive 57965938 Problem Diffuse cystic mastopathy of left breast N60.12 Active 57479810 Problem Diffuse cystic mastopathy of right breast N60.11 Active 01042137 ALLERGIES No Information ENCOUNTERS Encounter Location Date Diagnosis [facility] [address] [address] Dec, Abrasion of right cornea, in itial encounter [facility]05.01[facility] [address] [place] [phone] Nov, Irregular menstrual bleeding N92.6 [facility] [address] [place] [phone] Oct, Insect bite (nonvenomous) of unspecified back wall of thorax, initial encounter S20.469A ; Local infection of the skin and subcutaneous tissue, unspecified L08.9 ; Bitten or stung by nonvenomous insect and other nonvenomous arthropods, initial encounter W57.XXXA and Dermatitis L30.9 [facility] [address] [place] [address] Oct, Low back pain, unspecified b ack pain laterality, unspecified chronicity, with sciatica presence unspecified M54.5 and Cellulitis of bilateral orbits H05.013 [facility] [address] [place] [address] Oct, Back pain of lumbar region w ith sciatica M54.40 [facility] [address] [facility] [id number] [address] [place] [phone] Apr, Dental infection K04.7 [facility] [address] [id number] [id number] Feb, Family history of breast cancer Z80.3 ; Breast pain, left N64.4 ; Fibrocystic breast changes, left N60.12 and Fibrocystic breast changes, right N60.11 [facility] [address] [facility] [id number] [address] [place] [address] Jul, [facility] [address] [facility] [id number] [address] [place] [phone] Jul, [facility] [address] [facility] [id number] [address] [place] [phone] Jun, [facility] [address] [facility] [id number] [address] [place] [phone] Jun, [facility] [address] [facility] [id number] [address] [place] [phone] May, [facility] [address] [facility] [id number] [address] [place] [phone] May, [facility] [address] [facility] [id number] [address] [place] [phone] May, [facility] [address] [facility] [id number] [address] [place] [phone] May, [facility] [address] [facility] [id number] [address] [place] [phone] Apr, [facility] [address] [facility] [id number] [address] [place] [phone] Apr, IMMUNIZATIONS No Known Immunizations SOCIAL HISTORY Never Assessed REASON FOR VISIT PLAN OF CARE VITAL SIGNS MEDICATIONS No Known Medications RESULTS No Results PROCEDURES No Known procedures INSTRUCTIONS MEDICATIONS ADMINISTERED No Known Medications MEDICAL (GENERAL) HISTORY Type Description Date Surgical History C4 C5 titanium plate placed 07/2015
--- OUTSIDE RECORDS SUMMARY | 2019-09-02 14:39 | XMS REPORT ---
Author Author Aby Dwyer Doctor Organization [facility] Address Unknown Phone Unavailable Care Team Providers Care Timber Trimmer Name Role Phone Migration, Doctor Unavailable Unavailable PROBLEMS Type Condition ICD9-CM Code WNF92-UN Code Onset Dates Condition S tatus SNOMED Code Problem Diffuse cystic mastopathy of right breast N60.11 Active 73603318 Problem Back pain of lumbar region with sciatica M54.40 Active 225756051 Problem Diffuse cystic mastopathy of left breast N60.12 Active 57762774 ALLERGIES No Information ENCOUNTERS Encounter Location Date Diagnosis [facility] [address] [id number] [address] [place] [phone] Oct, Low back pain, unspecified b ack pain laterality, unspecified chronicity, with sciatica presence unspecified M54.5 and Cellulitis of bilateral orbits H05.013 [facility] [address] [id number] [address] [place] [address] Oct, Back pain of lumbar region w ith sciatica M54.40 [facility] WALK IN [facility] [address] [facility] [id number] [address] [place] [phone] Apr, Dental infection K04.[id number] [place] [id number] 08 Feb, 2016 Family history of breast cancer Z80.3 ; Breast pain, left N64.4 ; Fibrocystic breast changes, left N60.12 and Fibrocystic breast changes, right N60.11 [facility] [address] [id number] [address] [place] [phone] 14 Jul, 2014 [facility] [address] [id number] [address] [place] [phone] 13 Jul, 2014 [facility] [address] [id number] [place] [phone] Jun, [facility] [address] [id number] [address] [place] [phone] Jun, [facility] [address] [id number] [address] [place] [phone] May, [facility] [address] [id number] [address] [place] [phone] May, [facility] [address] [id number] [address] [place] [phone] May, [facility] [address] [id number] [address] [place] [phone] May, [facility] [address] [facility] [id number] [address] [place] [phone] Apr, [facility] [address] [facility] [id number] [address] [place] [phone] Apr, IMMUNIZATIONS No Known Immunizations SOCIAL HISTORY Never Assessed REASON FOR VISIT [facility] PLAN OF CARE VITAL SIGNS MEDICATIONS Unknown Medications RESULTS No Results PROCEDURES No Known procedures INSTRUCTIONS MEDICATIONS ADMINISTERED No Known Medications MEDICAL (GENERAL) HISTORY Type Description Date Surgical History C4 C5 titanium plate placed 07/2015
--- OUTSIDE RECORDS SUMMARY | 2019-09-02 14:39 | XMS REPORT ---
Author Author Aby Dwyer Doctor Organization [facility] Address Unknown Phone Unavailable Care Team Providers Care Closet Organizer Name Role Phone Migration, Doctor Unavailable Unavailable PROBLEMS Type Condition ICD9-CM Code RSN94-CB Code Onset Dates Condition S tatus SNOMED Code Problem Diffuse cystic mastopathy of right breast N60.11 Active 72675950 Problem Back pain of lumbar region with sciatica M54.40 Active 002710247 Problem Diffuse cystic mastopathy of left breast N60.12 Active 91470342 ALLERGIES Substance Reaction Event Type Date Status Bactrim hives Drug Allergy Jul, Active Codeine hives and swelling of throat Drug Allergy Jul, Active ENCOUNTERS Encounter Location Date Diagnosis [facility] [address] [facility] [id number] [address] [place] [phone] 16 Oct, 2017 Low back pain, unspecified b ack pain laterality, unspecified chronicity, with sciatica presence unspecified M54.5 and Cellulitis of bilateral orbits H05.013 [facility] WALK IN [facility] [address] [id number] [address] [place] [phone] Oct, Back pain of lumbar region w ith sciatica M54.40 [facility] WALK IN [facility] [address] [facility] [id number] [address] [place] [phone] Apr, Dental infection [address]04.[id number] [place] [id number] 08 Feb, 2016 Family history of breast cancer Z80.3 ; Breast pain, left N64.4 ; Fibrocystic breast changes, left N60.12 and Fibrocystic breast changes, right N60.11 [facility] [address] [id number] [address] [place] [phone] 14 Jul, 2014 [facility] [address] [id number] [address] [place] [phone] Jul, [facility] [address] [id number] [address] [place] [phone] Jun, [facility] [address] [id number] [address] [place] [phone] Jun, [facility] [address] [id number] [address] [place] [phone] May, [facility] [address] [id number] [address] [place] [phone] May, [facility] [address] [id number] [address] [place] [phone] May, [facility] [address] [id number] [address] [place] [phone] May, [facility] [address] [id number] [address] [place] [phone] Apr, [facility] [address] [id number] [address] [place] [phone] Apr, IMMUNIZATIONS No Known Immunizations SOCIAL HISTORY Never Assessed REASON FOR VISIT [facility] PLAN OF CARE VITAL SIGNS MEDICATIONS Medication Instructions Dosage Frequency Start Date End Date Duration S tatus Erythromycin 5 mg/gram (0.5 %) 1 in by O phthalmic route 4 times per day for 7 days RIGHT EYE Apr, Active RESULTS No Results PROCEDURES No Known procedures INSTRUCTIONS MEDICATIONS ADMINISTERED No Known Medications MEDICAL (GENERAL) HISTORY Type Description Date Surgical History C4 C5 titanium plate placed 07/2015
--- OUTSIDE RECORDS SUMMARY | 2019-09-02 14:39 | XMS REPORT ---
Author Aby Lo [facility] Address [address] [place] [address] Care Team Providers Care Insurance Sales Associate Name Role Phone LYUBOV DONOVAN Unavailable PROBLEMS Type Condition ICD9-CM Code MIL18-UB Code Onset Dates Condition S tatus SNOMED Code Problem Back pain of lumbar region with sciatica M54.40 Active 871066852 Problem Irregular menstrual bleeding N92.6 A ctive 68823658 Problem Diffuse cystic mastopathy of left breast N60.12 Active 87587938 Problem Diffuse cystic mastopathy of right breast N60.11 Active 42601351 ALLERGIES No Information ENCOUNTERS Encounter Location Date Diagnosis [facility] [address] [phone] 18 Dec, 2018 Abrasion of right cornea, in itial encounter S05.01XA [facility] [address] [place] [phone] 16 Nov, 2018 Irregular menstrual bleeding N92.6 [facility] [address] [place] [phone] 18 Oct, 2018 Insect bite (nonvenomous) of unspecified back wall of thorax, initial encounter S20.469A ; Local infection of the skin and subcutaneous tissue, unspecified L08.9 ; Bitten or stung by nonvenomous insect and other nonvenomous arthropods, initial encounter W57.XXXA and Dermatitis L30.9 [facility] [address] [place] [phone] Oct, Low back pain, unspecified b ack pain laterality, unspecified chronicity, with sciatica presence unspecified M54.5 and Cellulitis of bilateral orbits H05.013 [facility] [address] [place] [address], [place] [address] Oct, Back pain of lumbar region w ith sciatica M54.40 [facility] [address] [facility] [id number] [address] [place] [phone] Apr, Dental infection K04.7 [facility] [address] [id number] [place] [id number] Feb, Family history of breast cancer Z80.3 ; Breast pain, left N64.4 ; Fibrocystic breast changes, left N60.12 and Fibrocystic breast changes, right N60.11 [facility] [address] [id number] [address] [place] [phone] 14 Jul, 2014 [facility] [address] [facility] [id number] [address] [place] [phone] Jul, [facility] [address] [facility] [id number] [address] [place] [phone] Jun, [facility] [address] [facility] [id number] [address] [place] [phone] Jun, [facility] [address] [facility] [id number] [address] [place] [phone] May, [facility] [address] [facility] [id number] [address] [place] [phone] May, [facility] [address] [facility] [id number] [address] [place] [phone] May, [facility] [address] [facility] [id number] [address] [place] [phone] May, [facility] [address] [facility] [id number] [address] [place] [phone] Apr, [facility] [address] [facility] [id number] [address] [place] [phone] Apr, IMMUNIZATIONS No Known Immunizations SOCIAL HISTORY Never Assessed REASON FOR VISIT PLAN OF CARE VITAL SIGNS Height 63 in 2014-05-01 Weight 137.38 lbs 2014-05-01 Temperature 97.2 degrees Fahrenheit 2014-05-01 Heart Rate 76 bpm 2014-05-01 Respiratory Rate 18 2014-05-01 Blood pressure systolic 100 mmHg 2014-05-01 Blood pressure diastolic 60 mmHg 2014-05-01 MEDICATIONS No Known Medications RESULTS No Results PROCEDURES No Known procedures INSTRUCTIONS MEDICATIONS ADMINISTERED No Known Medications MEDICAL (GENERAL) HISTORY Type Description Date Surgical History C4 C5 titanium plate placed 07/2015
--- OUTSIDE RECORDS SUMMARY | 2019-09-02 14:39 | XMS REPORT | CCD ---
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 e Cross/Blue Shield [id number] 2017 Un known Family history Runs in the family Diagnosis Age At Onset Breast cancer Unknown Alcoholism Unknown Stroke Unknown Hypertension Unknown Hyperlipidemia Unknown Cancer Unknown Diabetes mellitus Type 2 Unknown Diabetes mellitus Type 1 Unknown Heart Attack Unknown Daughter Diagnosis Age At Onset Asthma Unknown Brother Diagnosis Age At Onset Depression Unknown Mother Diagnosis Age At Onset bleeding problem Unknown Alcoholism Unknown Asthma Unknown Depression Unknown Breast cancer Unknown Anemia Unknown Social History Social History Element Codes Description Effective Dates Marital status Unknown S eparated 06/21/2017 Number of children Unknown 3 06/21/2017 Employment Unknown [employer] employed [employer] 06/21/[address]: 95388290 Current every day smoker 1/2 pack per day x30 days 06/21/[address]: 311638028 Never drinks alcohol 06/21/2017 Allergies, Adverse Reactions, Alerts Substance Reaction Codes Entered Date Inactivated Date Status * NO KNOWN ENVIRONME NTAL ALLERGIES Unknown 06/21/2017 No Inactive Date Active * NO KNOWN FOOD MANISHA RGIES Unknown 06/21/2017 No Inactive Date Active bactrim hives RxNorm: 921704 06/21/2017 No Inactive Date Active CODEINE nausea RxNorm: 2670 06/21/2017 No Inactive Date Active Past Medical History Illness Codes Condition Status Onset Date Resolved Date Low back pain ICD-9: 724.2 ICD-10: M54.5 Active 10/16/2017 Unknown Muscle spasm of back ICD-9: 724.8 ICD-10: M62.830 Active 02/12/2018 Unknown Pain in thoracic spine ICD-9: 724.1 ICD-10: M54.6 Active 10/16/2017 Unknown Encounter for genera l adult medical examination with abnormal findings ICD-9: V70.0 ICD-10: Z00.01 Active 06/21/2017 Unknown Nicotine dependence, cigarettes, with other nicotine-induced disorders ICD-9: 292.89 ICD-10: F17.218 Active 06/21/2017 Unknown Other specified diso rders of the skin and subcutaneous tissue ICD-9: 709.3 ICD-10: L98.8 Active 06/21/2017 Unknown Tobacco use ICD-9: 305.1 ICD-10: Z72.0 Active 06/21/2017 Unknown Problems Condition Codes Effectiv e Dates Condition Status Low back pain ICD-9: 724.2 ICD-10: M54.5 10/16/2017 Active Muscle spasm of back ICD-9: 724.8 ICD-10: M62.830 02/12/2018 Active Pain in thoracic spine ICD-9: 724.1 ICD-10: M54.6 10/16/2017 Active Encounter for genera l adult medical examination with abnormal findings ICD-9: V70.0 ICD-10: Z00.01 06/21/2017 Active Nicotine dependence, cigarettes, with other nicotine-induced disorders ICD-9: 292.89 ICD-10: F17.218 06/21/2017 Active Other specified diso rders of the skin and subcutaneous tissue ICD-9: 709.3 ICD-10: L98.8 06/21/2017 Active Tobacco use ICD-9: 305.1 ICD-10: Z72.0 06/21/2017 Active Medications Medication Codes Instruc tions Start Date Stop Date Sta tus Fill Instructions tramadol 50 mg tablet RxNorm: 613346 1 Tablet(s) PO BID as needed 02/12/2018 03/13/2018 Active tizanidine 2 mg tablet RxNorm: 814471 1 Tablet(s) PO BID as needed 02/12/2018 04/12/2018 Active Chantix Continuing M onth Box 1 mg tablet RxNorm: 286250 1 Tablet(s) PO BID 07/20/2017 07/20/2017 In active Chantix Starting Mon th Box 0.5 mg (11)-1 mg (42) tablets in dose pack RxNorm: 717667 1 Tablet(s) PO UD 06/21/2017 07/15/2017 Inactive Flexeril 10 mg tablet RxNorm: 547479 Tablet(s) PO as needed No Start Date 02/11/2018 Inactive Medication Administered No Medication Administered data Immunizations No Immunization data Assessments Condition Codes Effectiv e Dates Pain in thoracic spine ICD-10: M54.6 ICD-9: 724.1 02/12/2018 Low back pain ICD-10: M54.5 ICD-9: 724.2 02/12/2018 Muscle spasm of back ICD-10: M62.830 ICD-9: 724.8 02/12/2018 Nicotine dependence, cigarettes, with ot her nicotine-induced disorders ICD-10: F17.218 ICD-9: 292.89 06/21/2017 Other specified disorders of the skin and subcutaneous tissue ICD-10: L98.8 ICD-9: 709.3 06/21/2017 Tobacco use ICD-10: Z72.0 ICD-9: 305.1 06/21/2017 Encounter for general adult medical exam ination with abnormal findings ICD-10: Z00.01 ICD-9: V70.0 06/21/2017 Reason For Visit Reason For Visit Effective Dates Notes back pain 02/12/2018 back pain 10/16/2017 cigarette smoking 06/21/2017 below right eye Results No Results data Review of Systems System Result Effective Dates Constitutional No recent illness 02/12/2018 Constitutional No anorexia 02/12/2018 Constitutional No night sweats 02/12/2018 Constitutional No chills 02/12/2018 Constitutional No diaphoresis 02/12/2018 Constitutional fatigue 1 04/14/2017 Constitutional No fever 02/12/2018 Constitutional No insomnia 02/12/2018 Constitutional No malaise 02/12/2018 Gastrointestinal No diarrhea 02/12/2018 Genitourinary/Nephrology No urinary incontinence 02/12/2018 Musculoskeletal back pain 02/12/2018 Musculoskeletal sciatica 02/12/2018 Psychiatric No anxiety 1 04/14/2017 Psychiatric No depression 02/12/2018 Neurologic No ataxia 09/2017 Neurologic No dizziness 02/12/2018 Musculoskeletal muscle weakness 02/12/2018 Constitutional No recent illness 10/16/2017 Constitutional No anorexia 10/16/2017 Constitutional No night sweats 10/16/2017 Constitutional No chills 10/16/2017 Constitutional No diaphoresis 10/16/2017 Constitutional No fatigue 10/16/2017 Constitutional No fever 10/16/2017 Constitutional No insomnia 10/16/2017 Constitutional No malaise 10/16/2017 Constitutional No weight loss 10/16/2017 Constitutional No weight gain 10/16/2017 Gastrointestinal No diarrhea 10/16/2017 Genitourinary/Nephrology No urinary incontinence 10/16/2017 Musculoskeletal back pain 10/16/2017 Musculoskeletal sciatica 10/16/2017 Constitutional No recent illness 06/21/2017 Constitutional No chills 06/21/2017 Constitutional fatigue 0 06/21/2017 Constitutional No fever 06/21/2017 Constitutional No insomnia 06/21/2017 Constitutional No malaise 06/21/2017 Eyes No vision change Ears/Nose/Throat/Neck No dental pain 06/21/2017 Ears/Nose/Throat/Neck No dizziness 06/21/2017 Ears/Nose/Throat/Neck No dysphagia 06/21/2017 Ears/Nose/Throat/Neck No headache 06/21/2017 Ears/Nose/Throat/Neck No hearing loss 06/21/2017 Ears/Nose/Throat/Neck No nasal allergies 06/21/2017 Ears/Nose/Throat/Neck No sore throat 06/21/2017 Ears/Nose/Throat/Neck No postnasal drip 06/21/2017 Ears/Nose/Throat/Neck No sinus congestion 06/21/2017 Cardiovascular No chest pain/pressure 06/21/2017 Cardiovascular No dyspnea 06/21/2017 Cardiovascular No edema 06/21/2017 Cardiovascular No exercise intolerance 06/21/2017 Cardiovascular No fatigue 06/21/2017 Cardiovascular No near-syncope/dizziness 06/21/2017 Respiratory No chest tightness 06/21/2017 Respiratory No cough Respiratory No dyspnea 0 06/21/2017 Respiratory No pedal edema 06/21/2017 Gastrointestinal No abdominal pain 06/21/2017 Gastrointestinal No constipation 06/21/2017 Gastrointestinal No diarrhea 06/21/2017 Gastrointestinal No gastroesophageal reflu x 06/21/2017 Gastrointestinal No nausea 06/21/2017 Gastrointestinal No vomiting 06/21/2017 Genitourinary/Nephrology No dysuria 06/21/2017 Genitourinary/Nephrology No nocturia 06/21/2017 Genitourinary/Nephrology No urinary incontinence 06/21/2017 Musculoskeletal No stiffness 06/21/2017 Musculoskeletal No swelling 06/21/2017 Musculoskeletal No muscle weakness 06/21/2017 Musculoskeletal No myalgias 06/21/2017 Dermatologic No rash Dermatologic No sores Neurologic No dizziness 06/21/2017 Neurologic No headache 0 06/21/2017 Neurologic No neck pain 06/21/2017 Neurologic No syncope Psychiatric No anxiety 0 06/21/2017 Psychiatric No depression 06/21/2017 Physical Exam Exam Name System Name It em Name Status Result Effective Dates Notes Full Exam - Orthopedics Constitutional general appearance Overall: well nourished 02/12/2018 None Full Exam - Orthopedics Constitutional general appearance Overall: well developed 02/12/2018 None Full Exam - Orthopedics Constitutional general appearance Overall: no assistive devices 02/12/2018 None Full Exam - Orthopedics Constitutional general appearance Overall: cooperative 02/12/2018 None Full Exam - Orthopedics Constitutional general appearance Overall: healthy appearance 02/12/2018 None Full Exam - Orthopedics Constitutional general appearance Evidence of Distress: in distress secondary to pain 02/12/2018 None Full Exam - Orthopedics Respiratory auscultation Overall: breath sounds clear bilaterally 02/12/2018 None Full Exam - Orthopedics Respiratory respiratory effort/rhythm Overall: no retractions 02/12/2018 None Full Exam - Orthopedics Respiratory respiratory effort/rhythm Overall: normal rate 02/12/2018 None Full Exam - Orthopedics Respiratory respiratory effort/rhythm Overall: normal, symmetric chest expansion 02/12/2018 None Full Exam - Orthopedics Cardiovascular examination of vasculature Overall: no clubbing, cyanosis, edema 02/12/2018 None Full Exam - Orthopedics MS: spine/ri b/pelvis insp & palp - S/R/P Thoracic spine i nspection: normal thoracic spine alignment 09/2017 None Full Exam - Orthopedics MS: spine/ri b/pelvis insp & palp - S/R/P Thoracic spine p alpation: tender thoracic spinous processes None Full Exam - Orthopedics MS: spine/ri b/pelvis insp & palp - S/R/P Lumbar spine palpation : tender lumbar spinous processes 02/12/2018 None Full Exam - Orthopedics MS: spine/ri b/pelvis insp & palp - S/R/P Sacroiliac palpation: left sacroiliac joint tenderness 02/12/2018 None Full Exam - Orthopedics MS: spine/ri b/pelvis insp & palp - S/R/P Thoracic/lumbar muscles palpation: tender left parathoracic 02/12/2018 None Full Exam - Orthopedics MS: spine/ri b/pelvis insp & palp - S/R/P Thoracic/lumbar muscles palpation: tender left paralumbar 02/12/2018 None Full Exam - Orthopedics Integument insp & palp - head & neck Overall: no rash or lesions 02/12/2018 None Full Exam - Orthopedics Psychiatric orientation/consciousness Overall: oriented to person, place and time 02/12/2018 None Full Exam - Orthopedics Constitutional general appearance Overall: well groomed 02/12/2018 None Full Exam - Orthopedics Constitutional general appearance Overall: well nourished 10/16/2017 None Full Exam - Orthopedics Constitutional general appearance Overall: well developed 10/16/2017 None Full Exam - Orthopedics Constitutional general appearance Overall: in no acute distress 10/16/2017 None Full Exam - Orthopedics Constitutional general appearance Overall: normal body habitus 10/16/2017 None Full Exam - Orthopedics Constitutional general appearance Overall: no deformities 10/16/2017 None Full Exam - Orthopedics Constitutional general appearance Overall: well groomed 10/16/2017 None Full Exam - Orthopedics Constitutional general appearance Overall: no assistive devices 10/16/2017 None Full Exam - Orthopedics Constitutional general appearance Overall: atraumatic 10/16/2017 None Full Exam - Orthopedics Constitutional general appearance Overall: cooperative 10/16/2017 None Full Exam - Orthopedics Constitutional general appearance Overall: healthy appearance 10/16/2017 None Full Exam - Orthopedics Constitutional general appearance Overall: pleasant 10/16/2017 None Full Exam - Orthopedics Constitutional general appearance Overall: relaxed 10/16/2017 None Full Exam - Orthopedics Psychiatric orientation/consciousness Overall: oriented to person, place and time 10/16/2017 None Full Exam - Orthopedics MS: spine/ri b/pelvis insp & palp - S/R/P Thoracic spine i nspection: normal thoracic spine alignment 10/07 None Full Exam - Orthopedics MS: spine/ri b/pelvis insp & palp - S/R/P Thoracic spine p alpation: tender thoracic spinous processes None Full Exam - Orthopedics MS: spine/ri b/pelvis insp & palp - S/R/P Lumbar spine palpation : tender lumbar spinous processes 10/16/2017 None Full Exam - Orthopedics MS: spine/ri b/pelvis insp & palp - S/R/P Thoracic/lumbar muscles palpation: tender left parathoracic 10/16/2017 None Full Exam - Orthopedics MS: spine/ri b/pelvis insp & palp - S/R/P Thoracic/lumbar muscles palpation: tender left paralumbar 10/16/2017 None Full Exam - Orthopedics MS: spine/ri b/pelvis insp & palp - S/R/P Sacroiliac palpation: left sacroiliac joint tenderness 10/16/2017 None Full Exam - Orthopedics Constitutional general appearance Evidence of Distress: in distress secondary to pain 10/16/2017 None Full Exam - Orthopedics Respiratory auscultation Overall: breath sounds clear bilaterally 10/16/2017 None Full Exam - Orthopedics Respiratory respiratory effort/rhythm Overall: no retractions 10/16/2017 None Full Exam - Orthopedics Respiratory respiratory effort/rhythm Overall: normal rate 10/16/2017 None Full Exam - Orthopedics Respiratory respiratory effort/rhythm Overall: normal, symmetric chest expansion 10/16/2017 None Full Exam - Orthopedics Cardiovascular examination of vasculature Overall: no clubbing, cyanosis, edema 10/16/2017 None Full Exam - Orthopedics Integument insp & palp - head & neck Overall: no rash or lesions 10/16/2017 None Full Exam - General 1994 Constitutional general appearance Development: well developed 06/21/2017 None Full Exam - General 1994 Constitutional general appearance Development: appears stated age 0306/21/2017 None Full Exam - General 1994 Constitutional general appearance Hygiene/Attention to Grooming: good hygiene 06/21/2017 None Full Exam - General 1994 Eyes conjunctiva/eyelids Overall: conjunctiva clear 06/21/2017 None Full Exam - General 1994 Eyes conjunctiva/eyelids Overall: cornea clear 06/21/2017 None Full Exam - General 1994 Eyes conjunctiva/eyelids Overall: eyelids normal 06/21/2017 None Full Exam - General 1994 Eyes pupils and irises Overall: pupils equal, round, reactive to light and accomodation 06/21/2017 None Full Exam - General 1994 Ears/Nose/Throat otoscopic exam Overall: external auditory canals clear 06/21/2017 None Full Exam - General 1994 Ears/Nose/Throat otoscopic exam Overall: tympanic membranes clear 06/21/2017 None Full Exam - General 1994 Ears/Nose/Throat lips/teeth/gingiva Overall: benign lips 06/21/2017 None Full Exam - General 1994 Ears/Nose/Throat oral cavity/pharynx/larynx Overall: oral mucosa clear 06/21/2017 None Full Exam - General 1994 Ears/Nose/Throat oral cavity/pharynx/larynx Overall: oropharyngeal mucosa clear 06/21/2017 None Full Exam - General 1994 Ears/Nose/Throat oral cavity/pharynx/larynx Overall: hypopharynx benign 06/21/2017 None Full Exam - General 1994 Ears/Nose/Throat oral cavity/pharynx/larynx Overall: no masses 06/21/2017 None Full Exam - General 1994 Respiratory auscultation Overall: breath sounds clear bilaterally 06/21/2017 None Full Exam - General 1994 Respiratory respiratory effort/rhythm Overall: no retractions 06/21/2017 None Full Exam - General 1994 Respiratory respiratory effort/rhythm Overall: normal rate 06/21/2017 None Full Exam - General 1994 Cardiovascular extremities Overall: no clubbing 06/21/2017 None Full Exam - General 1994 Cardiovascular auscultation of heart Overall: regular rate 06/21/2017 None Full Exam - General 1994 Cardiovascular auscultation of heart Overall: normal heart sounds 06/21/2017 None Full Exam - General 1994 Abdomen abdominal exam Overall: no tenderness 06/21/2017 None Full Exam - General 1994 Abdomen abdominal exam Overall: normal bowel sounds 06/21/2017 None Full Exam - General 1994 Lymphatic neck nodes Overall: anterior cervical chain benign 06/21/2017 None Full Exam - General 1994 Lymphatic neck nodes Overall: posterior cervical chain benign 06/21/2017 None Full Exam - General 1994 Musculoskeletal spine, ribs and pelvis Overall: spine benign 06/21/2017 None Full Exam - General 1994 Musculoskeletal spine, ribs and pelvis Overall: sacroiliac joint benign 06/21/2017 None Full Exam - General 1994 Musculoskeletal spine, ribs and pelvis Overall: good posture 06/21/2017 None Full Exam - General 1994 Musculoskeletal head and neck Overall: head atraumatic 06/21/2017 None Full Exam - General 1994 Musculoskeletal head and neck Overall: cervical spine benign 06/21/2017 None Full Exam - General 1994 Neurologic deep tendon reflexes Overall: deep tendon reflexes intact 06/21/2017 None Full Exam - General 1994 Neurologic cranial nerves Overall: crainial nerves 2 - 12 grossly intact 06/21/2017 None Full Exam - General 1994 Psychiatric orientation/consciousness Overall: oriented to person, place and time 06/21/2017 None Full Exam - General 1994 Psychiatric mood and affect Overall: normal mood and affect 06/21/2017 None Full Exam - General 1994 Ears/Nose/Throat lips/teeth/gingiva Teeth: dental caries 06/21/2017 None Full Exam - General 1994 Integument inspection of skin Location: face 06/21/2017 below right eye - cholest ashley deposit about 1 cm medial aspect Procedures Procedure Codes Date CURRENT TOBACCO SMOKER CPT-4: 1034F 06/21/2017 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 BULL DRIVER> 10MIN CPT-4: G0437 06/21/2017 Vital Signs Date Vital 02/12/2018 Blood Pressure 1: 142/90 Code: 8480-6 BMI: 24.3 Code: 38641-3 Heart Rate 1: 98 bpm Height: 5'3" SpO2: 96% Weight: 137 lbs 10/16/2017 Blood Pressure 1: 106/70 Code: 8480-6 BMI: 24.4 Code: 46532-6 Heart Rate 1: 88 bpm Height: 5'3" SpO2: 99% Weight: 138 lbs 06/21/2017 Blood Pressure 1: 120/74 Code: 8480-6 BMI: 24.1 Code: 34555-2 Heart Rate 1: 87 bpm Height: 5'3" SpO2: 97% Weight: 136 lbs Functional Status No Functional Status data History of Present Illness Symptom Name Status Resu lt Effective Date Notes back pain Location thora cic spine 02/12/2018 None back pain Location lumba r-sacral spine 02/12/2018 None back pain Quality consta nt 02/12/2018 None back pain Quality sharp 02/12/2018 None back pain Onset of Symptom 2-3 months ago 02/12/2018 None back pain Limitation on Activities moderately limits activities 02/12/2018 None back pain Pertinent Findings extremity numbness 02/12/2018 both legs back pain Pertinent Findings extremity weakness 02/12/2018 both legs back pain Pertinent Findings weakness 02/12/2018 None back pain Mechanism of injury unknown 02/12/2018 None back pain Quality acute 10/16/2017 None back pain Onset and Resolution sudden in onset 10/16/2017 None back pain Quality consta nt 10/16/2017 None back pain Quality radiat ing 10/16/2017 None back pain Quality numbne ss 10/16/2017 None back pain Quality stabbi ng 10/16/2017 None back pain Onset of Symptom 1 weeks ago 10/16/2017 None back pain Frequency of Episodes daily 10/16/2017 None back pain Mechanism of injury unknown 10/16/2017 None back pain Radiating down left leg 10/16/2017 None back pain Radiating into left foot 10/16/2017 None back pain Pertinent Findings extremity numbness 10/16/2017 None back pain Exacerbating Factors activity 10/16/2017 None back pain Exacerbating Factors position change 10/16/2017 None cigarette smoking Onset and Resolution in the process of stopping 06/21/2017 None cigarette smoking Onset of Symptom during adulthood 06/21/2017 None cigarette smoking Amount of Exposure 1/2 to 1 pack per day 06/21/2017 1/2 pack per day cigarette smoking Prior Attempts cutting back 06/21/2017 None cigarette smoking Prior Attempts medication use 06/21/2017 None cigarette smoking Prior Attempts nicotine gum 06/21/2017 None cigarette smoking Prior Attempts nicotine patch 06/21/2017 None cigarette smoking Quality acute 06/21/2017 None cigarette smoking Triggers no known associated factors 06/21/2017 None cigarette smoking Pertinent Findings Denies cancer/malignancy 06/21/2017 None cigarette smoking Pertinent Findings Denies other addiction issues 06/21/2017 None elbow pain Location on t he left 06/21/2017 None elbow pain Quality dull pain 06/21/2017 None elbow pain Quality acute 06/21/2017 None elbow pain Quality inter mittent 06/21/2017 None elbow pain Pertinent Findings Denies decreased range of motion 06/21/2017 None elbow pain Pertinent Findings Denies clicking 06/21/2017 None elbow pain Pertinent Findings Denies loss of sensation in the arm 06/21/2017 None elbow pain Pertinent Findings Denies locking 06/21/2017 None elbow pain Pertinent Findings Denies instability 06/21/2017 None elbow pain Pertinent Findings pain at rest 06/21/2017 None elbow pain Pertinent Findings pain with movement 06/21/2017 None elbow pain Pertinent Findings Denies weakness 06/21/2017 None skin lesion Quality enla rging 06/21/2017 None skin lesion Quality acute 06/21/2017 None skin lesion Onset and Resolution ongoing 06/21/2017 None skin lesion Onset of Symptom 1 years ago 06/21/2017 None skin lesion Onset of Symptom during adulthood 06/21/2017 None skin lesion Location on the right lower eyelid 06/21/2017 None skin lesion Pertinent Findings Denies facial numbness 06/21/2017 None skin lesion Pertinent Findings Denies facial pain 06/21/2017 None skin lesion Triggers no known associated factors 06/21/2017 None Advance Directives No Advance Directive data Encounters Encounter Performer Loca tion Codes Date () 00920 EST. P ATIENT, LEVEL III Diagnosis: Pain in thoracic spine[ICD10: M54.6] Diagnosis: Low back pain[ICD10: M54.5] Diagnosis: Muscle spasm of back[ICD10: M62.830] [facility] MD, [facility] CPT-4: 14433 02/12/2018 ([id number] EST. P ATIENT, LEVEL III Diagnosis: Pain in thoracic spine[ICD10: M54.6] Diagnosis: Low back pain[ICD10: M54.5] [facility] CPT- 4: 43569 10/16/2017 ([id number]) PREV VISIT N EW AGE 18-39 Diagnosis: Encounter for general adult medical examination with abnormal findings[ICD10: Z00.01] [facility] CPT-4: 42130 06/21/2017 Plan of Care Planned Activity Notes C odes Status Date Visit Plan: Back pain - muscle spas m of back - recommended pt to have physical therapy - I have discussed her case with Gabe Ball and to start on Tizanidine for the spasms and Tramadol PRN for pain. 02/12/2018 Patient Education: Patient Medication Summary Completed 02/12/2018 Patient Education: Back Pain Completed 02/12/2018 Visit Plan: Thoracic and lumbar spi ne pain with left side sciatica-plan for xrays today and MRI as indicated-recommend rest, ice and anti inflammatories as directed-no lifting-stretches as discussed-instructed patient we will call with results of xray and to call us with any concerns or worsening symptoms. Patient verbalized understanding of plan. 10/16/2017 Appointment: Lucy Peterson WPtel: [address] [place], [place] [phone] (15 min) Moderate 10/16/2017 Patient Education: Patient Medication Summary Completed 10/16/2017 Care Plan: X-RAY EXAM THORAC SPINE 2VWS LOINC : 35473-6 Pending 10/16/2017 Care Plan: X-RAY EXAM L-S SPINE 2/3 VWS LOINC : 80612-9 Pending 10/16/2017 Visit Plan: Well Adult - pt was cou nseled about diet, exercise, and encouraged to follow a heart healthy diet and increase activity level. The patient was instructed to RTC yearly for well adult exams and PRN for acute illnesses. The pt was also instructed to have yearly labs for check of cholesterol, thyroid, chem panel, CBC, and renal functioning. Cholesterol deposit below right eye - rx for cholesterol level. Tobacco abuse - rx for chantix 06/21/2017 Visit Plan: Well Adult - pt was cou nseled about diet, exercise, and encouraged to follow a heart healthy diet and increase activity level. The patient was instructed to RTC yearly for well adult exams and PRN for acute illnesses. The pt was also instructed to have yearly labs for check of cholesterol, thyroid, chem panel, CBC, and renal functioning. Cholesterol deposit below right eye - rx for cholesterol level. Tobacco abuse - rx for chantix Olecranon bursitis - recommended brace for elbow. 06/21/2017 App[facility]ment: [facility] [phone] [id number] New Patient 06/21/2017 Patient Education: Patient Medication Summary Completed 06/21/2017 Care Plan: COMPLETE CBC AUTOMATED LOINC : 30934-1 Pending 06/21/2017 Instructions Comment lidocaine patch - [employer] brand - use on the back at the spot where you hurt the most. - . Back pain - muscle spasm of back - recommended pt to have physical therapy - I have discussed her case with Gabe Ball and to start on Tizanidine for the spasms and Tramadol PRN for pain. . Thoracic and lumba r spine pain with left side sciatica- plan for xrays today and MRI as indicated-recommend rest, ice and anti inflammatories as directed-no lifting-stretches as discussed-instructed patient we will call with results of xray and to call us with any concerns or worsening symptoms. Patient verbalized understanding of plan. . Well Adult - pt wa s counseled about diet, exercise, and encouraged to follow a heart healthy diet and increase activity level. The patient was instructed to RTC yearly for well adult exams and PRN for acute illnesses. The pt was also instructed to have yearly labs for check of cholesterol, thyroid, chem panel, CBC, and renal functioning. Cholesterol deposit below right eye - rx for cholesterol level. Tobacco abuse - rx for chantix . Well Adult - pt wa s counseled about diet, exercise, and encouraged to follow a heart healthy diet and increase activity level. The patient was instructed to RTC yearly for well adult exams and PRN for acute illnesses. The pt was also instructed to have yearly labs for check of cholesterol, thyroid, chem panel, CBC, and renal functioning. Cholesterol deposit below right eye - rx for cholesterol level. Tobacco abuse - rx for chantix Olecranon bursitis - recommended brace for elbow.
--- OUTSIDE RECORDS SUMMARY | 2019-09-02 14:39 | XMS REPORT ---
Author Author Aby MIRANDA Organization [facility] Address [address] [place] [address] Care Team Providers Care Barrel Cutter Name Role Phone BIRDIE MIRANDA Unavailable PROBLEMS Type Condition ICD9-CM Code [id number] Code Onset Dates Condition S tatus SNOMED Code Problem Diffuse cystic mastopathy of right breast N60.11 Active 99294038 Problem Back pain of lumbar region with sciatica M54.40 Active 814768664 Problem Diffuse cystic mastopathy of left breast N60.12 Active [id number] ALLERGIES No Information ENCOUNTERS Encounter Location Date Diagnosis [facility] [id number] [place] [id number] 16 Oct, 2017 Low back pain, unspecified b ack pain laterality, unspecified chronicity, with sciatica presence unspecified M54.5 and Cellulitis of bilateral orbits H05.013 [facility] [id number] [place] [phone] Oct, Back pain of lumbar region w ith sciatica M54.40 [facility] [address] [facility] [id number] [address] [place] [phone] Apr, Dental infection K04.[id number] [place] [id number] 08 Feb, 2016 Family history of breast cancer Z80.3 ; Breast pain, left N64.4 ; Fibrocystic breast changes, left N60.12 and Fibrocystic breast changes, right N60.11 [facility] [id number] [place] [phone] 14 Jul, 2014 [facility] [id number] [place] [phone] Jul, [facility] [address] [id number] [address] [place] [phone] Jun, [facility] [address] [id number] [address] [place] [phone] Jun, [facility] [address] [id number] [address] [place] [phone] May, [facility] [address] [id number] [address] [place] [phone] May, [facility] [address] [id number] [address] [place] [phone] May, [facility] [address] [id number] [address] [place] [phone] May, [facility] [address] [facility] [id number] [address] [place] [phone] Apr, [facility] [address] [id number] [address] [place] [phone] Apr, IMMUNIZATIONS No Known Immunizations SOCIAL HISTORY Never Assessed REASON FOR VISIT PLAN OF CARE VITAL SIGNS Height 63 in 2014-06-08 Weight 136.31 lbs 2014-06-08 Temperature 97.3 degrees Fahrenheit 2014-06-08 Heart Rate 84 bpm 2014-06-08 Respiratory Rate 18 2014-06-08 Blood pressure systolic 130 mmHg 2014-06-08 Blood pressure diastolic 60 mmHg 2014-06-08 MEDICATIONS Unknown Medications RESULTS No Results PROCEDURES No Known procedures INSTRUCTIONS MEDICATIONS ADMINISTERED No Known Medications MEDICAL (GENERAL) HISTORY Type Description Date Surgical History C4 C5 titanium plate placed 07/2015
--- OUTSIDE RECORDS SUMMARY | 2019-09-02 14:39 | XMS REPORT ---
Author Author Aby TONY [facility] Address [address] [place] [address] Care Team Providers Care Chiseler Head Name Role Phone RENZO TONY Unavailable PROBLEMS Type Condition ICD9-CM Code CKE57-DN Code Onset Dates Condition S tatus SNOMED Code Problem Diffuse cystic mastopathy of right breast N60.11 Active 48459545 Problem Diffuse cystic mastopathy of left breast N60.12 Active [id number] ALLERGIES Substance Reaction Event Type Date Status Bactrim hives Drug Allergy Apr, Active Codeine hives and swelling of throat Drug Allergy Apr, Active ENCOUNTERS Encounter Location Date Diagnosis [facility] IN [facility] [address] [facility] [id number] [address] [place] [phone] Apr, Dental infection [id number] [place] [id number] Feb, Family history of breast cancer Z80.3 ; Breast pain, left N64.4 ; Fibrocystic breast changes, left N60.12 and Fibrocystic breast changes, right N60.11 [facility] [address] [facility] [id number] [address] [place] [phone] Jul, [facility] [address] [facility] [id number] [address] [place] [phone] Jul, [facility] [address] [facility] [id number] [address] [place] [phone] Jun, [facility] [id number] [place] [phone] Jun, [facility] [address] [facility] [id number] [address] [place] [phone] May, [facility] [address] [facility] [id number] [address] [place] [phone] May, [facility] [address] [facility] [id number] [address] [place] [phone] May, [facility] [address] [facility] [id number] [address] [place] [phone] May, [facility] [address] [facility] [id number] [address] [place] [phone] Apr, [facility] [address] [facility] [id number] [address] [place] [phone] Apr, IMMUNIZATIONS No Known Immunizations SOCIAL HISTORY Never Assessed REASON FOR VISIT tooth pain, lower right side, hurts from ear to throat, started to hurt yesterda y, supposed to have multiple extra[facility] Activity Details Follow Up prn Reason: VITAL SIGNS Height 63 in 2017-04-30 Weight 136.2 lbs 2017-04-30 Temperature 97.2 degrees Fahrenheit 2017-04-30 Heart Rate 84 bpm 2017-04-30 Respiratory Rate 20 2017-04-30 BMI 24.12 kg/m2 2017-04-30 Blood pressure systolic 110 mmHg 2017-04-30 Blood pressure diastolic 70 mmHg 2017-04-30 MEDICATIONS Medication Instructions Dosage Frequency Start Date End Date Duration S tatus Cyclobenzaprine HCl 10 MG Orally Three times a day 1 tablet 8h Not-Taking Erythromycin 5 mg/gram (0.5 %) 1 in by O phthalmic route 4 times per day for 7 days RIGHT EYE Apr, Not-Taking Amoxicillin 500 MG Orally every 8 hrs 1 tablet 8h Apr, May, 10 day(s) Active RESULTS No Results PROCEDURES No Known procedures INSTRUCTIONS MEDICATIONS ADMINISTERED No Known Medications MEDICAL (GENERAL) HISTORY Type Description Date Surgical History C4 C5 titanium plate placed 07/2015
--- OUTSIDE RECORDS SUMMARY | 2019-09-02 14:39 | XMS REPORT ---
Author Author Aby Christopher Organization [facility] Address [address] [place] [address] Care Team Providers Care Landscaper Name Role Phone RUBIN Christopher Unavailable PROBLEMS Type Condition ICD9-CM Code XNX88-LA Code Onset Dates Condition S tatus SNOMED Code Problem Back pain of lumbar region with sciatica M54.40 Active 132466487 Problem Diffuse cystic mastopathy of right breast N60.11 Active 51020323 Problem Diffuse cystic mastopathy of left breast N60.12 Active 08715745 ALLERGIES Substance Reaction Event Type Date Status Bactrim hives Drug Allergy Oct, Active Codeine hives and swelling of throat Drug Allergy Oct, Active ENCOUNTERS Encounter Location Date Diagnosis [facility] [id number] [place] [phone] Oct, Low back pain, unspecified b ack pain laterality, unspecified chronicity, with sciatica presence unspecified M54.5 and Cellulitis of bilateral orbits H05.013 [facility] [address] [facility] [id number] [address] [place] [phone] Oct, Back pain of lumbar region w ith sciatica M54.40 [facility] [address] [id number] [place] [phone] Apr, Dental infection K04.7 [facility] [id number] [place] [address] [id number] 08 Feb, 2016 Family history of breast cancer Z80.3 ; Breast pain, left N64.4 ; Fibrocystic breast changes, left N60.12 and Fibrocystic breast changes, right N60.11 [facility] [address] [facility] [id number] [address] [place] [phone] Jul, [facility] [address] [id number] [address] [place] [phone] Jul, [facility] [address] [id number] [address] [place] [phone] Jun, [facility] [address] [id number] [address] [place] [phone] Jun, [facility] [address] [id number] [address] [place] [phone] May, [facility] [address] [id number] [address] [place] [phone] May, [facility] [address] [id number] [address] [place] [phone] May, [facility] [address] [id number] [address] [place] [phone] May, [facility] [address] [id number] [address] [place] [phone] Apr, [facility] [address] [id number] [address] [place] [phone] Apr, IMMUNIZATIONS No Known Immunizations SOCIAL HISTORY Never Assessed REASON FOR VISIT swollen eyes started yesterday, Kidney pain JStrasserRN PLAN OF CARE Activity Details Follow Up prn Reason: VITAL SIGNS Height 63 in 2017-10-22 Weight 136.8 lbs 2017-10-22 Temperature 98.7 degrees Fahrenheit 2017-10-22 Heart Rate 88 bpm 2017-10-22 Respiratory Rate 20 2017-10-22 BMI 24.23 kg/m2 2017-10-22 Blood pressure systolic 128 mmHg 2017-10-22 Blood pressure diastolic 80 mmHg 2017-10-22 MEDICATIONS Medication Instructions Dosage Frequency Start Date End Date Duration S laisha Clindamycin HCl 300 MG Orally every 8 hrs 1 capsule 8h 2017Oct, 10 days Active Cyclobenzaprine HCl 10 MG Orally Three times a day 1 tablet as need ed 8h Oct, Oct, 7 days Active PredniSONE 20 MG Orally 3 tablets x 3 days, f ollowed by 2 tablets x 3 days, followed by 1 tablet x 3 days. as directed Oct, Oct, 9 days Active RESULTS Name Result Date Reference Range UA LONG DIP (IN HOUSE) 2017-10-22 Lot # [id number] Exp date 03-08-2018 Clarity clear Color yellow Odor none GLU negative MINDA negative KET negative SG 1.015 BLO trace-intact pH 8.0 Protein negative URO 0.2 NIT negative ROSA ELENA negative Lot # [id number] Exp date Mar 2018 PROCEDURES Procedure Date Ordered Result Body Site URINALYSIS, AUTO, W/O SCOPE October 22, 2017 INSTRUCTIONS MEDICATIONS ADMINISTERED No Known Medications MEDICAL (GENERAL) HISTORY Type Description Date Surgical History C4 C5 titanium plate placed 07/2015
[2019-09-02] MEDS ORDERED: oxyCODONE/APAP 5/325MG (PERCOCET 5) TABLET PO ONE (15:00)
[2019-09-02] MEDS ORDERED: PRD20T PO (15:13)
[2019-09-02] MEDS ORDERED: CYCL10TA9 PO (15:13)
[2019-09-02] MEDS ORDERED: OXYC1TAB87 PO (15:13)
[2019-09-02 15:31] VITALS: BP 110/87
== END 2019-09-02 15:33 | disposition home or self-care (01) ==
LOC: EDUNIT# 11:37 → ER 11:38
DX: M54.6 Pain in thoracic spine (principal); F17.210 Nicotine dependence, cigarettes, uncomplicated; Z88.5 Allergy status to narcotic agent; Z88.2 Allergy status to sulfonamides; Z88.1 Allergy status to other antibiotic agents
CPT/HCPCS: 96374; 96375